=== PATIENT | female | born 1955 | race Caucasian/White ===

== ENCOUNTER 2016-04-01 13:08 | Inpatient (IN) | payer OTHER ==
[~2016-04-01] VITALS: Ht 170.2 cm; Wt 61.5 kg
[~2016-04-01 13:08] MED LIST: CARB100T2 PO; HYDR-3498 PO; IBUP-1542 PO
[2016-04-01 14:30] VITALS: BP 100/62; PULSE 87; RESP 18
[2016-04-01 14:45] VITALS: Ht 170.2 cm; Wt 61.5 kg
[2016-04-01] MEDS ORDERED: DOCUSATE SODIUM 100 MG CAP PO PRN (15:30)
[2016-04-01] MEDS ORDERED: NACL 0.9% 3 ML SYG IV SCH (15:30)
[2016-04-01] MEDS ORDERED: BISACODYL 10 MG SUPP PR PRN (15:30)
[2016-04-01] MEDS ORDERED: ACETAMINOPHEN 650 MG SUPP PR PRN (15:30)
[2016-04-01] MEDS: CIPROFLOXACIN 400MG/D5W 200 ML IVPB SCH (16:16)
[2016-04-01] MEDS: D5W-0.45 NACL + KCL 20 MEQ 1,000 ML IV SCH (16:16)
[2016-04-01] MEDS ORDERED: LORAZEPAM 1 MG TAB PO PRN (16:17)
[2016-04-01] MEDS: ONDANSETRON 4 MG INJ IV PRN ×2 (16:26→23:41)
[2016-04-01] MEDS: morphine 2 MG INJ IV PRN ×2 (16:27→21:20)
[2016-04-01] MEDS ORDERED: MAGNESIUM SULFATE 3 GM in SOD CHLORIDE 0.9% 100 ML IVPB ONE (17:00)
--- NOTE | 2016-04-01 18:01 | HP ---
DATE OF ADMISSION: 04/01/2016 CONSULTANTS: Gastroenterology. HISTORY OF PRESENT ILLNESS: This is a very pleasant 60-year-old female with past medical history of seizure disorder who has been complaining of having abdominal discomfort and nausea and vomiting an d having difficulty with p.o. intake secondary to nausea and abdominal pain. She also has been comp laining of chronic back pain and also has a history of prior hysterectomy. She reported nausea, vom iting for the past 2 weeks emesis is nonbloody, accompanied with generalized abdominal pain, no diar tana, normal bowel movements without any fever, chills, weight gain, weight loss. Positive for anor exia secondary to the nausea and vomiting. The patient became very anxious and had been having bila teral lower extremity numbness and discomfort and got anxious and presented to [facility] where she had a normal white count of 8.3. Sodium 131, potassium 2.8, chloride 80, bicarbon ate 16, GFR greater than 60, glucose 104, calcium 8.4, alkaline phosphatase 191, lipase of 164 and m agnesium 1.3. The patient was treated with 10 mEq of potassium chloride IV and [address] of the abdomen and pelvis was obtained which was unremarkable, although the small bowel was hyperemic, mildly distended and fluid-filled consistent with enteritis, hepatomegaly with fatty infiltration of the liver. Chest x-ray showed no acute disease. The patient was transferred to [facility] secondary to insurance purposes, which at this time the patient continues to complain of abdominal discomfort. This patient denies having any other discomfort at this time. PAST MEDICAL AND SURGICAL HISTORY: 1. Possible neuropathy. 2. Seizure disorder. 3. Chronic back pain. 4. Hysterectomy. MEDICATIONS: 1. Tegretol. 2. [place]. 3. Ibuprofen. ALLERGIES: NO KNOWN DRUG ALLERGIES. FAMILY HISTORY: Noncontributory. SOCIAL HISTORY: Negative x3 for smoking, alcohol, illicit drugs. REVIEW OF SYSTEMS: As above per HPI, otherwise 12 review of systems was found to be negative. PHYSICAL EXAMINATION: VITAL SIGNS: Temperature 98.7, pulse 114, respiration 18, blood pressure 130/88, oxygen 98% in room air. GENERAL APPEARANCE: Patient is well developed, appropriate for usual state of health, no apparent d istress. ENT: Extraocular is normal. Hearing is normal. Lips are normal. Oral mucosa mildly dry. NECK: Supple. Trachea is midline. No lymphadenopathy. No meningeal mass. LUNGS: Clear to auscultation bilaterally, no rales, no wheezing, no rhonchi. CARDIOVASCULAR: Normal S1, S2. Regular rhythm and rate. No murmur, no bruits, no edema. GASTROINTESTINAL: Abdomen is soft, minimally tender in the generalized abdominal region on deep pal pation. No guarding, no rebound. EXTREMITIES: There is no peripheral cyanosis or edema. No focal erythema. NEUROLOGIC: Cranial II through XII are grossly intact. PSYCHIATRIC: Normal judgment and insight. Alert and oriented x3. Mood and affect is normal. The patient is not anxious or depressed. MUSCULOSKELETAL: The patient moves all 4 extremities, 5/5 strength. SKIN: She has no apparent rash. LYMPHATIC: No evidence of excessive bruising or lymphedema. LABORATORY WORK AND IMAGING: WBC 8.3, hemoglobin 9.3, hematocrit 26.4, platelet 270, MCV is 106.5. Sodium 131, potassium 2.8, chloride 80, bicarbonate 16, BUN 9, creatinine 0.6, magnesium 1.3. Lipa se 164. ASSESSMENT AND PLAN 1. Intractable nausea and vomiting. 2. Hyperkalemia. 3. Hypermagnesemia. 4. Mild pancreatitis. 5. History of seizure disorder. 6. Hepatomegaly or fatty infiltration of the liver. 7. Microcytic anemia. 8. Antritis. PLAN: The patient has been admitted to Med/Surg. She will be started on IV fluids. Gastroenterolo gy has been consulted. We will place the patient on ciprofloxacin at this time. We will follow up CBC, BNP, magnesium in the a.m. and treat accordingly. Patient's potassium has been repleted at [facility]. At this time, I will also place the patient on magnesium 3 gram IV x1 dose. We w ill follow up vitamin B12 and folic acid and treat accordingly. For deep venous thrombosis prophyla xis on SCD. For gastrointestinal prophylaxis on proton pump inhibitor. We will continue to monitor patient closely. Further recommendations, management and treatment as p er clinical course. Total amount of time was spent for this patient on admission workup 40 minutes. Dictated By: AMA FLORES/NTS Conf#: [id number] DID#: [id number]
[2016-04-01 21:03] VITALS: BP 113/60; RESP 18
[2016-04-01] MEDS: carBAMAZepine CHEW 100 MG CHEW PO SCH (21:20)
[2016-04-02] VITALS (13 sets, daily range): BP systolic 88–118; BP diastolic 51–80; PULSE 84–90; RESP 11–24
[2016-04-02] MEDS: CIPROFLOXACIN 400MG/D5W 200 ML IVPB SCH ×2 (03:28→16:00)
[2016-04-02] MEDS: D5W-0.45 NACL + KCL 20 MEQ 1,000 ML IV SCH ×2 (03:28→16:06)
[2016-04-02 05:28] LABS: BASOPHILS % 0.9 % (0.0-2.0); EOSINOPHILS % 0.4 % (0.0-7.0); HEMATOCRIT 20.4 % (37.0-47.0); LYMPHOCYTES # 0.8 10^3/ul (0.8-2.9); LYMPHOCYTES % 21.2 % (15.0-51.0); MEAN CORPUSCULAR HEMOGLOBIN 38.4 pg (29.0-33.0); MEAN CORPUSCULAR HGB CONC 34.5 g/dl (32.0-37.0); MEAN CORPUSCULAR VOLUME 111.3 fl (82.0-101.0); MEAN PLATELET VOLUME 7.3 fl (7.4-10.4); MONOCYTE # 0.4 10^3/ul (0.3-0.9); MONOCYTES % 9.5 % (0.0-11.0); NEUTROPHIL # 2.6 10^3/ul (1.6-7.5); PLATELET COUNT 171 10^3/UL (140-440); RED BLOOD COUNT 1.83 10^6/ul (4.20-5.40); UNCORRECTED WBC 3.9 10^3/ul (4.8-10.8); WHITE BLOOD COUNT 3.9 10^3/ul (4.8-10.8)
[2016-04-02 05:34] LABS: IRON 120 ug/dl (35-150)
[2016-04-02 05:35] LABS: ALBUMIN 2.5 g/dl (3.3-4.9)
[2016-04-02 05:38] LABS: BILIRUBIN,INDIRECT 0.7 mg/dl (0-1.1); BILIRUBIN,TOTAL 0.7 mg/dl (0.2-1.3); CREATININE 0.5 mg/dl (0.44-1.00); TOTAL PROTEIN 4.8 g/dl (6.1-8.1)
[2016-04-02 05:39] LABS: CALCIUM 7.3 mg/dl (8.4-10.2); MAGNESIUM 1.9 mg/dl (1.7-2.5); POTASSIUM 2.4 mmol/L (3.5-5.1)
[2016-04-02 05:40] LABS: CHOL/HDL RATIO 3.3 RATIO
[2016-04-02 05:44] LABS: TOTAL IRON BINDING CAPACITY 141 ug/dl (241-421)
[2016-04-02 05:59] LABS: ALBUMIN/GLOBULIN RATIO 1.08
[2016-04-02] MEDS ORDERED: POTASSIUM CHLORIDE 250 ML IVPB ONE (06:00)
[2016-04-02] MEDS ORDERED: PANTOPRAZOLE 40 MG INJ IV SCH (06:00)
[2016-04-02] MEDS: ONDANSETRON 4 MG INJ IV PRN ×2 (06:10→13:58)
[2016-04-02] MEDS: POTASSIUM CHLORIDE (SR) 20 MEQ TAB PO SCH ×2 (06:10→12:51)
[2016-04-02] MEDS: morphine 2 MG INJ IV PRN ×3 (06:21→18:30)
[2016-04-02 06:28] LABS: CONDITION 1; LH ANALYZER COMMENTS 1
[2016-04-02 06:42] LABS: FOLATE 2.9 ng/ml (2.8-20.0)
[2016-04-02 07:45] LABS: THYROID STIMULATING HORMONE 2.77 MIU/L (0.465-4.680)
[2016-04-02] MEDS ORDERED: SOD CHLORIDE 0.9% 250 ML IV* ONE (08:06)
--- NOTE | 2016-04-02 08:59 | CONS ---
Date/Time of Note Date/Time of Note DATE: 04/02/16 TIME: 08:57 Assessment/Plan Assessment/Plan Additional Assessment/Plan Abdominal pain Nausea Vomiting * Evaluate for PUD * EGD this afternoon with Dr. Stanford * N.p.o. Anemia * Evaluate for PUD versus hemochromatosis * Monitor hemoglobin every 6 hours, transfuse 2 units for hemoglobin less than 7.5 * May need HemeOnc consult Transaminitis * Acute hepatitis panel * Monitor LFTs Hypokalemia. History of seizure disorder. Further recommendations pending clinical course Patient seen in collaboration with Dr. Stanford Consultation Date/Type/Reason Admit Date/Time Apr 01, 2016 at 14:01 Type of Consultation: Gastroenterology Reason for Consultation Abdominal pain Hx of Present Illness 60-year-old female with reports of intense abdominal pain, nausea, nonbloody bilious vomiting, and weight loss for the last 2 weeks. Patient states that symptoms have been present intermittently but of late have been intense and unrelenting for the last few days. Patient reports abdominal pain and left upper quadrant and epigastrium and states the pain lasts for hours to days. Patient states that abdominal pain, nausea, vomiting has led her to lose close to 20 pounds in over 2 weeks. Patient denies diarrhea, sick contacts, fever, chills travel outside the [place], new medication, antibiotic use, alcohol abuse, melena stools, and previous episode. Patient also denies previous endoscopic evaluation. She also has been complaining of chronic back pain and also has a history of prior hysterectomy. Presently patient's hemoglobin is at 7.0 with elevated ferritin. Past Surgical History Past Surgical Hx: other (History of) Social History Alcohol Use: rarely Smoking Status: Current every day smoker Exam/Review of Systems Vital Signs Vitals Vital Signs Date Time Temp Pulse Resp B/P Pulse Ox O2 Delivery O2 Flow Rate FiO2 04/02/16 08:01 98.2 92 18 88/51 93 04/01/16 14:30 Room Air Intake and Output 04/01/16 04/01/16 04/02/16 15:00 23:00 07:00 Intake Total 456 ml 1260 ml Output Total 1 ml 400 ml Balance 455 ml 860 ml Exam Constitutional: alert, oriented, well developed Psych: nl mood/affect Head: normocephalic Eyes: EOMI ENMT: nl external ears & nose, nl lips & teeth, nl nasal mucosa & septum Respiratory: normal air movement Gastrointestinal: other (Left upper quadrant and epigastric), soft Neurological: FABRICATION MANAGER II-XII intact Results Result Diagram: 04/02/16 0440 04/02/16 0440 Results 24 hrs Laboratory Tests Test 04/02/16 04:40 Alanine Aminotransferase (ALT/SGPT) 52 Albumin 2.5 L Albumin/Globulin Ratio 1.08 Alkaline Phosphatase 141 H Anion Gap 15 Aspartate Amino Transf (AST/SGOT) 118 H Basophils # Pending Basophils % Pending Blood Morphology Comment Blood Urea Nitrogen 7 Calcium Level 7.3 L Carbon Dioxide Level 26 Chloride Level 92 L Cholesterol Level 142 Cholesterol/HDL Ratio 3.3 Creatinine 0.50 Direct Bilirubin 0.00 Eosinophils # Pending Eosinophils % Pending Ferritin 1040.0 H Folate 2.9 Globulin 2.30 Glucose Level 136 HDL Cholesterol 42 Hematocrit 20.4 L Hemoglobin 7.0 L Indirect Bilirubin 0.7 Iron Level 120 LDL Cholesterol, Calculated 86 Lymphocytes # Pending Lymphocytes % Pending Magnesium Level 1.9 Mean Corpuscular Hemoglobin 38.4 H Mean Corpuscular Hemoglobin Concent 34.5 Mean Corpuscular Volume 111.3 H Mean Platelet Volume 7.3 L Monocytes # Pending Monocytes % Pending Neutrophils # Pending Neutrophils % Pending Nucleated Red Blood Cells # Pending Nucleated Red Blood Cells % Pending Percent Iron Saturation 85 H Platelet Count 171 Potassium Level 2.4 *L Red Blood Count 1.83 L Red Cell Distribution Width 17.0 H Sodium Level 131 L Thyroid Stimulating Hormone (TSH) 2.770 Total Bilirubin 0.7 Total Iron Binding Capacity 141 L Total Protein 4.8 L Triglycerides Level 71 Vitamin B12 Level 774 White Blood Count 3.9 L Medications Medications Current Medications Carbamazepine 200 mg 200 mg BID PO Last administered on 04/01/16 21:20; Admin Dose 200 MG; Start 04/01/16 at 21:00 Potassium Chloride/Dextrose/ Sod Cl (D5-1/2ns + KCl 20 Meq) 1,000 ml @ 80 mls/ hr [id number] IV Last administered on 04/02/16 03:28; Admin Dose 80 MLS/HR; Start 04/01/16 at 15:06 Ondansetron HCl (Zofran Inj) 4 mg Q6H PRN IV NAUSEA AND/OR VOMITING Last administered on 04/02/16 06:10; Admin Dose 4 MG; Start 04/01/16 at 15:30 Acetaminophen (Tylenol Tab) 650 mg Q6H PRN PO PAIN LEVEL 1-3 OR FEVER; Start at 15:30 Acetaminophen (Tylenol Supp) 650 mg Q6H PRN [place] PAIN LEVEL 1-3 OR FEVER; Start 04/01/16 at 15:30 Morphine Sulfate (morphine) 1 mg Q4H PRN IV SEVERE PAIN LEVEL 7-10 Last administered on 04/02/16 06:21; Admin Dose 1 MG; Start 04/01/16 at 15:30 Docusate Sodium (Colace) 100 mg Q12H PRN PO CONSTIPATION; Start 04/01/16 at 15: 30 Bisacodyl (Dulcolax Supp) 10 mg DAILY PRN [place] CONSTIPATION; Start 04/01/16 at 15: 30 Zolpidem Tartrate (Ambien) 5 mg QHS PRN PO SLEEP; Start 04/01/16 at 15:30 Pantoprazole 40 mg 40 mg DAILY@06 IV Last administered on 04/02/16 06:10; Admin Dose 40 MG; Start 04/02/16 at 06:00 Ciprofloxacin/ Dextrose (Cipro Ivpb) 200 ml @ 200 mls/hr Q12H IVPB Last administered on 04/02/16 03:28; Admin Dose 200 MLS/HR; Start 04/01/16 at 16:00 Lorazepam (Ativan) 1 mg Q8H PRN PO ANXIETY; Start 04/01/16 at 16:17 Potassium Chloride 40 meq 40 meq Q4H PO Last administered on 04/02/16 06:10; Admin Dose 40 MEQ; Start 04/02/16 at 06:00; Stop 04/02/16 at 11:00 Potassium Chloride (KCl 40 MEQ/250 ML NS) 250 ml @ 62.5 mls/hr ONCE ONCE IVPB Last administered on 04/02/16 06:11; Admin Dose 62.5 MLS/HR; Start 04/02/16 at 06:00; Stop 04/02/16 at 09:59 JOEY MANN Apr 02, 2016 08:59
[2016-04-02] MEDS: carBAMAZepine CHEW 100 MG CHEW PO SCH ×2 (09:00→21:13)
[2016-04-02 09:24] LABS: AMYLASE 85 U/L (11-123)
[2016-04-02 11:25] LABS: HAAIG REFLEX REFLEX FILED
[2016-04-02 11:45] LABS: INR 1.15; PROTIME 14.7 Sec (12.2-14.2); PT RATIO 1.1
--- NOTE | 2016-04-02 12:22 | RADRPT ---
PROCEDURE: US Abdomen and Retroperitoneum. CLINICAL INDICATION: Abdominal pain. TECHNIQUE: Multiple real-time longitudinal and transverse images were acquired of the patient's ab domen and retroperitoneum utilizing a curved array transducer. COMPARISON: No prior studies are available for comparison. FINDINGS: The liver is enlarged and diffusely increased in echogenicity. The liver has a normal smooth surfac e. There is no focal hepatic lesion. Color Doppler and pulsed Doppler sonography demonstrate normal antegrade flow in the portal vein. There is sludge in the gallbladder. There are no gallstones in the gallbladder. There is gallbladd er wall thickening measuring 5.4 mm. There is small amount of fluid adjacent to the gallbladder. The bile ducts are normal with the common bile duct measuring 5.4 mm in diameter. The spleen is normal in size. There is no focal splenic lesion. The pancreas is partially seen and is unremarkable. There is no free fluid. The right kidney measures 12.7 x 4.8 cm and the left kidney measures 12.9 x 6.8 cm. There is no renal mass. There is no hydronephrosis or calculus. The abdominal aorta is not dilated. The inferior vena cava is unremarkable. IMPRESSION: 1. Fatty metamorphosis of the liver. 2. Hepatomegaly. 3. Sludge in the gallbladder. No gallstones. Gallbladder wall thickening and small amount of saima cent fluid which may indicate acute cholecystitis. 4. Normal bile ducts. 5. Otherwise normal ultrasound of the abdomen and retroperitoneum. RPTAT: QQ .Yakov Espinal MD, MD Date Time Electronically viewed and signed by .Yakov Espinal MD, on 04/02/2016 12:22 .R/
[2016-04-02 12:44] LABS: HEPATITIS B CORE ANTIBODY NEGATIVE (NEGATIVE)
[2016-04-02 14:56] LABS: POTASSIUM 3.5 mmol/L (3.5-5.1)
[2016-04-02 14:59] LABS: CALCIUM 7.4 mg/dl (8.4-10.2); CREATININE 0.47 mg/dl (0.44-1.00)
--- NOTE | 2016-04-02 16:08 | PN ---
DATE: 04/02/2016 TIME OF EVALUATION: 1300 SUBJECTIVE DATA: Complains of abdominal pain. OBJECTIVE DATA: VITAL SIGNS: Temperature 98.2, pulse rate 92, respiratory rate 18, blood pressure 88/51, oxygen saturation 93% on room air. GENERAL: This is a fragile looking female patient lying in bed in no apparent distress. HEENT: Head normocephalic and atraumatic. Eyes: Anicteric sclerae. Conjunctivae clear. ENT: Nasal septum is midline. Oral mucosa is dry. NECK: Supple. No JVD noticed. RESPIRATORY: Bilaterally clear to auscultation. No adventitious breath sounds heard. No use of accessory muscles of respiration. CARDIAC: Regular rate and rhythm. No murmurs heard. ABDOMEN: Soft. Diffuse tenderness. Bowel sounds hypoactive in all 4 quadrants. GENITOURINARY: Deferred. EXTREMITIES: No cyanosis, no clubbing, no edema. Peripheral pulses are palpable. NEUROLOGIC: The patient is awake, alert and oriented. Cranial nerves are grossly intact. LABORATORY AND DIAGNOSTIC DATA: WBC 3.9, hemoglobin 7.0, hematocrit 20.4, platelet count 171. Sodium 133, potassium 3.5, chloride 97, anion gap 15, BUN 6 , creatinine 0.47, glucose 106, calcium 7.4. ASSESSMENT AND PLAN: 1. Abdominal pain with associated nausea and vomiting. The patient has been followed by gastroenterology. Abdominal ultrasound showing fatty metamorphosis of the liver and hepatomegaly with sludge in the gallbladder; however, no gallstones identified. The patient will be continued on proton pump inhibitors. The patient is scheduled for esophagogastroduodenoscopy to evaluate for any underlying peptic ulcer disease. 2. Seizure disorder. Continue anti-seizure medications. 3. Macrocytic anemia. Transfuse as needed. Stool for OB pending. Gastroenterology following. 4. Transaminitis. Etiology unclear. Gallbladder ultrasound showing gallbladder sludge. Avoid hepatotoxic medications. Hepatitis panel negative. 5. Hyponatremia. Improving. Monitor. 6. Fluid, electrolytes and nutrition. N.p.o. except for medications. 7. DVT prophylaxis with bilateral sequential compression devices. 8. Gastrointestinal prophylaxis with PPIs. PLAN: Continue proton pump inhibitors, await esophagogastroduodenoscopy. Transfuse PRBCs. Case discussed with Dr. Reddy. KRYSTAL REDDY MD, AM/CALLI Conf#: [id number] [facility]#: [id number] MTDD
[2016-04-02] MEDS ORDERED: PROPOFOL 40 ML ONE (16:50)
[2016-04-02] MEDS ORDERED: LIDOCAINE 2% (SDV) 5 ML INJ ONE (16:50)
[2016-04-02] MEDS: METOCLOPRAMIDE 10 MG INJ IV SCH (18:30)
[2016-04-02] MEDS: PANTOPRAZOLE 40 MG INJ IV SCH (21:13)
[2016-04-03] MEDS: morphine 2 MG INJ IV PRN ×5 (00:03→21:12)
[2016-04-03] MEDS: CIPROFLOXACIN 400MG/D5W 200 ML IVPB SCH ×2 (03:48→15:31)
[2016-04-03] MEDS: D5W-0.45 NACL + KCL 20 MEQ 1,000 ML IV SCH ×2 (03:50→17:02)
[2016-04-03] MEDS: METOCLOPRAMIDE 10 MG INJ IV SCH ×4 (05:13→17:21)
[2016-04-03 05:50] LABS: ALBUMIN 2.5 g/dl (3.3-4.9); POTASSIUM 3.4 mmol/L (3.5-5.1)
[2016-04-03 05:53] LABS: ALBUMIN/GLOBULIN RATIO 1.04; BILIRUBIN,INDIRECT 0.7 mg/dl (0-1.1); BILIRUBIN,TOTAL 0.7 mg/dl (0.2-1.3); CALCIUM 7.5 mg/dl (8.4-10.2); CREATININE 0.43 mg/dl (0.44-1.00); TOTAL PROTEIN 4.9 g/dl (6.1-8.1)
[2016-04-03 05:57] LABS: AMYLASE 68 U/L (11-123)
[2016-04-03 06:35] LABS: MAGNESIUM 1.3 mg/dl (1.7-2.5); PHOSPHORUS 1.4 mg/dl (2.5-4.9)
[2016-04-03 06:53] LABS: BASOPHILS % 0.8 % (0.0-2.0); EOSINOPHILS % 0.5 % (0.0-7.0); HEMATOCRIT 25.1 % (37.0-47.0); HEMOGLOBIN 8.8 g/dl (12.0-16.0); LYMPHOCYTES % 24.4 % (15.0-51.0); MEAN CORPUSCULAR HEMOGLOBIN 35.1 pg (29.0-33.0); MEAN CORPUSCULAR HGB CONC 35.1 g/dl (32.0-37.0); MEAN PLATELET VOLUME 9.7 fl (7.4-10.4); MONOCYTES % 11.2 % (0.0-11.0); NEUTROPHIL # 2.3 10^3/ul (1.6-7.5); NEUTROPHILS % 62.6 % (39.0-77.0); PLATELET COUNT 149 10^3/UL (140-440); RED BLOOD COUNT 2.51 10^6/ul (4.20-5.40); RED CELL DISTRIBUTION WIDTH 20.1 % (11.5-14.5); WHITE BLOOD COUNT 3.7 10^3/ul (4.8-10.8)
[2016-04-03 06:54] LABS: LYMPHOCYTES # 0.9 10^3/ul (0.8-2.9); MONOCYTE # 0.4 10^3/ul (0.3-0.9)
[2016-04-03 08:11] VITALS: BP 112/68; RESP 18
[2016-04-03] MEDS: carBAMAZepine CHEW 100 MG CHEW PO SCH ×2 (08:30→21:11)
[2016-04-03] MEDS: PANTOPRAZOLE 40 MG INJ IV SCH ×2 (08:30→21:11)
--- NOTE | 2016-04-03 08:36 | CONS ---
Date/Time of Note Date/Time of Note DATE: 04/03/16 TIME: 08:35 Assessment/Plan Assessment/Plan Chief Complaint/Hosp Course 60-year-old female with reports of intense abdominal pain, nausea, nonbloody bilious vomiting, and weight loss for the last 2 weeks. Patient states that symptoms have been present intermittently but of late have been intense and unrelenting for the last few days. Patient reports abdominal pain and left upper quadrant and epigastrium and states the pain lasts for hours to days. Patient states that abdominal pain, nausea, vomiting has led her to lose close to 20 pounds in over 2 weeks. Patient denies diarrhea, sick contacts, fever, chills travel outside the [place], new medication, antibiotic use, alcohol abuse, melena stools, and previous episode. Patient also denies previous endoscopic evaluation. She also has been complaining of chronic back pain and also has a history of prior hysterectomy. Presently patient's hemoglobin is at 7.0 with elevated ferritin. Problems: Additional Assessment/Plan Abdominal pain Nausea Vomiting * EGD 04-02-16: 1. Small 5 mm clean based antral gastric ulceration. Biopsies were obtained. * Continue PPIs and Reglan * Recommend colonoscopy once pancreatitis and persistent nausea clear either as an inpatient or as an outpatient shortly after discharge. this afternoon with Dr. Stanford * Advance diet as tolerated Anemia * Evaluate for PUD versus hemochromatosis * Monitor hemoglobin every 6 hours, transfuse 2 units for hemoglobin less than 7.5 * May need HemeOnc consult Transaminitis * Acute hepatitis panel, negative * Monitor LFTs Hypokalemia. History of seizure disorder. Further recommendations pending clinical course Patient seen in collaboration with Dr. Stanford Consultation Date/Type/Reason Admit Date/Time Apr 01, 2016 at 14:01 Initial Consult Date Type of Consultation: Gastroenterology 24 HR Interval Summary Free Text/Dictation Advised patient of EGD results We will advance diet Recommend outpatient colonoscopy since she does not want it as inpatient Exam/Review of Systems Vital Signs Vitals Vital Signs Date Time Temp Pulse Resp B/P Pulse Ox O2 Delivery O2 Flow Rate FiO2 04/03/16 08:11 98.3 92 18 112/68 95 04/02/16 18:48 Room Air Intake and Output 04/02/16 04/02/16 04/03/16 14:59 22:59 06:59 Intake Total 330 ml 350 ml 1700 ml Output Total 830 ml Balance 330 ml 350 ml 870 ml Exam Constitutional: alert, oriented, well developed Psych: nl mood/affect Head: normocephalic Eyes: EOMI ENMT: nl external ears & nose, nl lips & teeth, nl nasal mucosa & septum Respiratory: normal air movement Gastrointestinal: other (Left upper quadrant and epigastric), soft Neurological: SUGAR BOILER II-XII intact Results Result Diagram: 04/03/1644404/03/165 Results 24 hrs Laboratory Tests Test 04/02/16 11:00 04/02/16 11:25 04/02/16 14:10 04/03/16 04:45 Hepatitis B Core Total Antibody NEGATIVE Hepatitis B Surface Antigen NEGATIVE Hepatitis C Antibody NEGATIVE INR International Normalized Ratio 1.15 Prothrombin Time 14.7 H Prothrombin Time Ratio 1.1 Hepatitis A IgM Antibody NON-REACTIVE Anion Gap 15 12 Blood Urea Nitrogen 6 L 4 L Calcium Level 7.4 L 7.5 L Carbon Dioxide Level 25 24 Chloride Level 97 100 Creatinine 0.47 0.43 L Glucose Level 106 134 Potassium Level 3.5 3.4 L Sodium Level 133 L 133 L Alanine Aminotransferase (ALT/SGPT) 44 Albumin 2.5 L Albumin/Globulin Ratio 1.04 Alkaline Phosphatase 140 H Amylase Level 68 Aspartate Amino Transf (AST/SGOT) 109 H Basophils # 0.0 Basophils % 0.8 Direct Bilirubin 0.00 Eosinophils # 0.0 Eosinophils % 0.5 Globulin 2.40 Hematocrit 25.1 #L Hemoglobin 8.8 #L Indirect Bilirubin 0.7 Lipase 517 H Lymphocytes # 0.9 Lymphocytes % 24.4 Magnesium Level 1.3 L Mean Corpuscular Hemoglobin 35.1 H Mean Corpuscular Hemoglobin Concent 35.1 Mean Corpuscular Volume 100.0 Mean Platelet Volume 9.7 # Monocytes # 0.4 Monocytes % 11.2 H Neutrophils # 2.3 Neutrophils % 62.6 Nucleated Red Blood Cells # 0.0 Nucleated Red Blood Cells % 0.0 Phosphorus Level 1.4 L Platelet Count 149 Red Blood Count 2.51 #L Red Cell Distribution Width 20.1 H Total Bilirubin 0.7 Total Protein 4.9 L White Blood Count 3.7 L Medications Medications Current Medications Carbamazepine 200 mg 200 mg BID PO Last administered on 04/03/16t 08:30; Admin Dose 200 MG; Start 04/01/16 at 21:00 Potassium Chloride/Dextrose/ Sod Cl (D5-1/2ns + KCl 20 Meq) 1,000 ml @ 80 mls/ hr [id number] IV Last administered on 04/03/16 03:50; Admin Dose 80 MLS/HR; Start 04/01/16 at 15:06 Ondansetron HCl (Zofran Inj) 4 mg Q6H PRN IV NAUSEA AND/OR VOMITING Last administered on 04/02/16 13:58; Admin Dose 4 MG; Start 04/01/16 at 15:30 Acetaminophen (Tylenol Tab) 650 mg Q6H PRN PO PAIN LEVEL 1-3 OR FEVER; Start at 15:30 Acetaminophen (Tylenol Supp) 650 mg Q6H PRN [place] PAIN LEVEL 1-3 OR FEVER; Start 04/01/16 at 15:30 Morphine Sulfate (morphine) 1 mg Q4H PRN IV SEVERE PAIN LEVEL 7-10 Last administered on 04/03/16 05:14; Admin Dose 1 MG; Start 04/01/16 at 15:30 Docusate Sodium (Colace) 100 mg Q12H PRN PO CONSTIPATION; Start 04/01/16 at 15: 30 Bisacodyl (Dulcolax Supp) 10 mg DAILY PRN [place] CONSTIPATION; Start 04/01/16 at 15: 30 Zolpidem Tartrate 5 mg 5 mg QHS PRN PO SLEEP; Start 04/01/16 at 15:30 Ciprofloxacin/ Dextrose (Cipro Ivpb) 200 ml @ 200 mls/hr Q12H IVPB Last administered on 04/03/16 03:48; Admin Dose 200 MLS/HR; Start 04/01/16 at 16:00 Lorazepam (Ativan) 1 mg Q8H PRN PO ANXIETY; Start 04/01/16 at 16:17 Pantoprazole (Protonix Iv) 40 mg BID IV Last administered on 04/03/16 08:30; Admin Dose 40 MG; Start 04/02/16 at 21:00 Metoclopramide HCl (Reglan) 10 mg Q6 IV Last administered on 04/03/16 05:13; Admin Dose 10 MG; Start 04/02/16 at 18:00 JOEY MANN Apr 03, 2016 08:36
[2016-04-03] MEDS: ONDANSETRON 4 MG INJ IV PRN (08:37)
--- NOTE | 2016-04-03 09:42 | GILP ---
DATE OF PROCEDURE: 04/02/2016 DATE: NAME OF PROCEDURE: Esophagogastroduodenoscopy with biopsy. SURGEON: Eugenio Stanford MD. PREOPERATIVE DIAGNOSIS: ____ POSTOPERATIVE DIAGNOSIS: ____ DESCRIPTION OF PROCEDURE: ____ HISTORY AND INDICATIONS: The patient with severe anemia. PREMEDICATION: Monitored anesthesia care by anesthesiologist. INSTRUMENT USED: Olympus upper endoscope. TECHNIQUE: After informed consent, with the patient/relatives understanding the procedure, its indic ations, potential risks and complications, including but not limited to: allergic reaction, bleeding , perforation or infection, and after all pertinent questions were answered to the patients satisfac tion, the patient/relatives signed witnessed informed consent. Following this, premedication was administered slowly IV push under careful cardiovascular and respi ratory monitoring with pulse oximetry, automatic blood pressure and senior hr business partner. Once the sedative effect was achieved the patient was place in the left lateral decubitus, the panen doscope was introduced and advanced under visual control. Careful examination of the upper gastrointestinal tract, both on insertion as well as withdrawal of the instrument disclosed the following findings: ESOPHAGUS: The mucosa of the entire esophagus appears within normal limits. There is no evidence of esophagitis, varices, neoplasm or stricture. No hiatal hernia identified. STOMACH: Upon entrance into the stomach, air was insufflated, the gastric melton distended normally. There was a 5 mm clean based benign appearing gastric ulceration in the antrum. Biopsies were obt ained to rule out H. pylori infection. PYLORUS: The pylorus appears patent and within normal limits, with no evidence of gastric outlet obs truction. DUODENUM: The duodenal mucosa was carefully examined in the duodenal bulb as well as the second port ion of the duodenum and appears unremarkable with no evidence of duodenitis, ulcer or neoplasm. The instrument was then withdrawn, the patient tolerated the procedure well and was transfer out of the endoscopy suite awake, and in good condition to continue recovery under observation IMPRESSION: Small 5 mm clean based antral gastric ulceration. Biopsies were obtained. PLAN: The patient will be treated with PPIs. Reglan will be added to her regimen. The patient mike uld be considered for colonoscopy once pancreatitis and persistent nausea clear either as an inpatie nt or as an outpatient shortly after discharge. Dictated By: EUGENIO STANFORD MS/CALLI Conf#: [id number] [facility]#: [id number]
--- NOTE | 2016-04-03 11:34 | PN ---
Date/Time of Note Date/Time of Note DATE: 04/03/16 TIME: 11:23 Assessment/Plan VTE Prophylaxis VTE Prophylaxis Intervention: SCD's Lines/Catheters IV Catheter Type (from Nrs): Peripheral IV Urinary Cath still in place: No Assessment/Plan Assessment/Plan PROBLEMS: Abdominal pain with associated nausea and vomiting 2/2 Alcoholic Pancreatitis Seizure disorder. Continue anti-seizure medications. Small Gastric ulcer * Seen on EGD 04/02/16 Moderate Macrocytic anemia s/p transfusion 04/02/16 Transaminitis likely 2/2 Fatty liver. Hypernatremia. Improving. ?Alcohol abuse Hypokalemia Hypophosphatemia Hypomagnesemia Hypocalcemia PLAN: Appreciate GI input / Continue proton pump inhibitors / f/u biopsies / Will need outpt Colonoscopy Continue NPO / IVF / Amylase & Lipase trending Replace electrolytes Continue seizure precautions / pain control/ antiemetics/ supportive care Subjective 24 Hr Interval Summary Gastrointestinal: decreased appetite, pain Exam/Review of Systems Vital Signs Vitals Vital Signs Date Time Temp Pulse Resp B/P Pulse Ox O2 Delivery O2 Flow Rate FiO2 04/03/16 08:11 98.3 92 18 112/68 95 04/02/16 18:48 Room Air Intake and Output 04/02/16 04/02/16 04/03/16 15:00 23:00 07:00 Intake Total 330 ml 350 ml 1700 ml Output Total 830 ml Balance 330 ml 350 ml 870 ml Exam GENERAL: This is a fragile looking female patient lying in bed in no apparent distress. HEENT: Head normocephalic and atraumatic. Eyes: Anicteric sclerae. Conjunctivae clear. ENT: Nasal septum is midline. Oral mucosa is dry. NECK: Supple. No JVD noticed. RESPIRATORY: Bilaterally clear to auscultation. No adventitious breath sounds heard. No use of accessory muscles of respiration. CARDIAC: Regular rate and rhythm. No murmurs heard. ABDOMEN: Soft. Diffuse tenderness. Bowel sounds hypoactive in all 4 quadrants. GENITOURINARY: Deferred. EXTREMITIES: No cyanosis, no clubbing, no edema. Peripheral pulses are palpable. NEUROLOGIC: The patient is awake, alert and oriented. Cranial nerves are grossly intact. Results Result Diagram: 04/03/16 0445 04/03/16 0445 Results 24 hrs Laboratory Tests Test 04/02/16 11:25 04/02/16 14:10 04/03/16 04:45 Hepatitis A IgM Antibody NON-REACTIVE Anion Gap 15 12 Blood Urea Nitrogen 6 L 4 L Calcium Level 7.4 L 7.5 L Carbon Dioxide Level 25 24 Chloride Level 97 100 Creatinine 0.47 0.43 L Glucose Level 106 134 Potassium Level 3.5 3.4 L Sodium Level 133 L 133 L Alanine Aminotransferase (ALT/SGPT) 44 Albumin 2.5 L Albumin/Globulin Ratio 1.04 Alkaline Phosphatase 140 H Amylase Level 68 Aspartate Amino Transf (AST/SGOT) 109 H Basophils # 0.0 Basophils % 0.8 Direct Bilirubin 0.00 Eosinophils # 0.0 Eosinophils % 0.5 Globulin 2.40 Hematocrit 25.1 #L Hemoglobin 8.8 #L Indirect Bilirubin 0.7 Lipase 517 H Lymphocytes # 0.9 Lymphocytes % 24.4 Magnesium Level 1.3 L Mean Corpuscular Hemoglobin 35.1 H Mean Corpuscular Hemoglobin Concent 35.1 Mean Corpuscular Volume 100.0 Mean Platelet Volume 9.7 # Monocytes # 0.4 Monocytes % 11.2 H Neutrophils # 2.3 Neutrophils % 62.6 Nucleated Red Blood Cells # 0.0 Nucleated Red Blood Cells % 0.0 Phosphorus Level 1.4 L Platelet Count 149 Red Blood Count 2.51 #L Red Cell Distribution Width 20.1 H Total Bilirubin 0.7 Total Protein 4.9 L White Blood Count 3.7 L Medications Medications Current Medications Carbamazepine 200 mg 200 mg BID PO Last administered on 04/03/16 08:30; Admin Dose 200 MG; Start 04/01/16 at 21:00 Potassium Chloride/Dextrose/ Sod Cl (D5-1/2ns + KCl 20 Meq) 1,000 ml @ 80 mls/ hr [id number] IV Last administered on 04/03/16 03:50; Admin Dose 80 MLS/HR; Start 04/01/16 at 15:06 Ondansetron HCl (Zofran Inj) 4 mg Q6H PRN IV NAUSEA AND/OR VOMITING Last administered on 04/03/16 08:37; Admin Dose 4 MG; Start 04/01/16 at 15:30 Acetaminophen (Tylenol Tab) 650 mg Q6H PRN PO PAIN LEVEL 1-3 OR FEVER; Start at 15:30 Acetaminophen (Tylenol Supp) 650 mg Q6H PRN [place] PAIN LEVEL 1-3 OR FEVER; Start 04/01/16 at 15:30 Morphine Sulfate (morphine) 1 mg Q4H PRN IV SEVERE PAIN LEVEL 7-10 Last administered on 04/03/16 05:14; Admin Dose 1 MG; Start 04/01/16 at 15:30 Docusate Sodium (Colace) 100 mg Q12H PRN PO CONSTIPATION; Start 04/01/16 at 15: 30 Bisacodyl (Dulcolax Supp) 10 mg DAILY PRN [place] CONSTIPATION; Start 04/01/16 at 15: 30 Zolpidem Tartrate 5 mg 5 mg QHS PRN PO SLEEP; Start 04/01/16 at 15:30 Ciprofloxacin/ Dextrose (Cipro Ivpb) 200 ml @ 200 mls/hr Q12H IVPB Last administered on 04/03/16 03:48; Admin Dose 200 MLS/HR; Start 04/01/16 at 16:00 Lorazepam (Ativan) 1 mg Q8H PRN PO ANXIETY; Start 04/01/16 at 16:17 Pantoprazole (Protonix Iv) 40 mg BID IV Last administered on 04/03/16 08:30; Admin Dose 40 MG; Start 04/02/16 at 21:00 Metoclopramide HCl (Reglan) 10 mg Q6 IV Last administered on 04/03/16 05:13; Admin Dose 10 MG; Start 04/02/16 at 18:00 GORDON JAMES Apr 03, 2016 11:33
[2016-04-03] MEDS ORDERED: MAGNESIUM SULFATE 2 GM/50 ML 50 ML IVPB ONE (12:00)
[2016-04-03] MEDS ORDERED: POTASSIUM PHOSPHATE 20 MEQ in SOD CHLORIDE 0.9% 250 ML IVPB ONE (13:00)
[2016-04-03] MEDS: ACETAMINOPHEN 325 MG TAB PO PRN (22:54)
[2016-04-03 23:19] VITALS: BP 114/75; RESP 18
[2016-04-04] MEDS: METOCLOPRAMIDE 10 MG INJ IV SCH ×5 (00:13→23:43)
[2016-04-04] MEDS: D5W-0.45 NACL + KCL 20 MEQ 1,000 ML IV SCH ×2 (02:07→15:33)
[2016-04-04] MEDS: CIPROFLOXACIN 400MG/D5W 200 ML IVPB SCH ×2 (04:22→15:32)
[2016-04-04] MEDS: morphine 2 MG INJ IV PRN ×5 (05:30→22:09)
[2016-04-04 08:10] VITALS: BP 108/69; RESP 18
--- NOTE | 2016-04-04 08:44 | CONS ---
Date/Time of Note Date/Time of Note DATE: 04/04/16 TIME: 08:44 Assessment/Plan Assessment/Plan Additional Assessment/Plan Abdominal pain Nausea Vomiting * EGD 04-02-16: 1. Small 5 mm clean based antral gastric ulceration. Biopsies were obtained. * Continue PPIs and Reglan * Recommend colonoscopy once pancreatitis and persistent nausea clear either as an inpatient or as an outpatient shortly after discharge. Pancreatitis * Likely secondary to EtOH abuse * N.p.o. * IVF hydration * Trend labs Anemia * Evaluate for PUD versus hemochromatosis * Monitor hemoglobin every 6 hours, transfuse 2 units for hemoglobin less than 7.5 * May need HemeOnc consult Transaminitis * Acute hepatitis panel, negative * Monitor LFTs Hypokalemia. History of seizure disorder. Further recommendations pending clinical course Patient seen in collaboration with Dr. Stanford Consultation Date/Type/Reason Admit Date/Time Apr 01, 2016 at 14:01 Type of Consultation: Gastroenterology 24 HR Interval Summary Free Text/Dictation Reports abdominal pain improving Denies nausea and vomiting Exam/Review of Systems Vital Signs Vitals Vital Signs Date Time Temp Pulse Resp B/P Pulse Ox O2 Delivery O2 Flow Rate FiO2 04/04/16 08:10 98.3 94 18 108/69 96 04/02/16 18:48 Room Air Intake and Output 04/03/16 04/03/16 04/04/16 15:00 23:00 07:00 Intake Total 480 ml 724.5455 ml 870 ml Output Total 300 ml Balance 480 ml 724.5455 ml 570 ml Exam Constitutional: alert, oriented, well developed Psych: nl mood/affect Head: normocephalic Eyes: EOMI ENMT: nl external ears & nose, nl lips & teeth, nl nasal mucosa & septum Respiratory: normal air movement Gastrointestinal: other (Left upper quadrant and epigastric), soft Neurological: ACTION FINISHER II-XII intact Results Result Diagram: 04/03/1644404/03/16444 Medications Medications Current Medications Carbamazepine 200 mg 200 mg BID PO Last administered on 04/03/16 21:11; Admin Dose 200 MG; Start 04/01/16 at 21:00 Potassium Chloride/Dextrose/ Sod Cl (D5-1/2ns + KCl 20 Meq) 1,000 ml @ 80 mls/ hr [id number] IV Last administered on 04/04/16 02:07; Admin Dose 80 MLS/HR; Start 04/01/16 at 15:06 Ondansetron HCl (Zofran Inj) 4 mg Q6H PRN IV NAUSEA AND/OR VOMITING Last administered on 04/03/16 08:37; Admin Dose 4 MG; Start 04/01/16 at 15:30 Acetaminophen (Tylenol Tab) 650 mg Q6H PRN PO PAIN LEVEL 1-3 OR FEVER Last administered on 04/03/16 22:54; Admin Dose 650 MG; Start 04/01/16 at 15:30 Acetaminophen (Tylenol Supp) 650 mg Q6H PRN [place] PAIN LEVEL 1-3 OR FEVER; Start 04/01/16 at 15:30 Morphine Sulfate (morphine) 1 mg Q4H PRN IV SEVERE PAIN LEVEL 7-10 Last administered on 04/04/16 05:30; Admin Dose 1 MG; Start 04/01/16 at 15:30 Docusate Sodium (Colace) 100 mg Q12H PRN PO CONSTIPATION; Start 04/01/16 at 15: 30 Bisacodyl (Dulcolax Supp) 10 mg DAILY PRN [place] CONSTIPATION; Start 04/01/16 at 15: 30 Zolpidem Tartrate 5 mg 5 mg QHS PRN PO SLEEP; Start 04/01/16 at 15:30 Ciprofloxacin/ Dextrose (Cipro Ivpb) 200 ml @ 200 mls/hr Q12H IVPB Last administered on 04/04/16 04:22; Admin Dose 200 MLS/HR; Start 04/01/16 at 16:00 Lorazepam (Ativan) 1 mg Q8H PRN PO ANXIETY; Start 04/01/16 at 16:17 Pantoprazole (Protonix Iv) 40 mg BID IV Last administered on 04/03/16 21:11; Admin Dose 40 MG; Start 04/02/16 at 21:00 Metoclopramide HCl (Reglan) 10 mg Q6 IV Last administered on 04/04/16 05:29; Admin Dose 10 MG; Start 04/02/16 at 18:00 JOEY MANN Apr 04, 2016 08:44
[2016-04-04] MEDS: carBAMAZepine CHEW 100 MG CHEW PO SCH ×2 (09:42→20:26)
[2016-04-04] MEDS: PANTOPRAZOLE 40 MG INJ IV SCH ×2 (09:42→22:12)
[2016-04-04 14:46] LABS: ALBUMIN 2.7 g/dl (3.3-4.9)
[2016-04-04 14:47] LABS: POTASSIUM 3.7 mmol/L (3.5-5.1)
[2016-04-04 14:48] LABS: PHOSPHORUS 2.3 mg/dl (2.5-4.9)
[2016-04-04 14:49] LABS: ALBUMIN/GLOBULIN RATIO 1.03; BILIRUBIN,INDIRECT 0.6 mg/dl (0-1.1); BILIRUBIN,TOTAL 0.6 mg/dl (0.2-1.3); CREATININE 0.37 mg/dl (0.44-1.00); MAGNESIUM 1.2 mg/dl (1.7-2.5); TOTAL PROTEIN 5.3 g/dl (6.1-8.1)
[2016-04-04 14:50] LABS: CALCIUM 7.7 mg/dl (8.4-10.2)
[2016-04-04 16:17] LABS: EOSINOPHILS % 0.6 % (0.0-7.0); HEMATOCRIT 27.5 % (37.0-47.0); HEMOGLOBIN 9.4 g/dl (12.0-16.0); LYMPHOCYTES # 0.9 10^3/ul (0.8-2.9); LYMPHOCYTES % 22.5 % (15.0-51.0); MEAN CORPUSCULAR HEMOGLOBIN 35.7 pg (29.0-33.0); MEAN CORPUSCULAR HGB CONC 34.2 g/dl (32.0-37.0); MEAN CORPUSCULAR VOLUME 104.4 fl (82.0-101.0); MEAN PLATELET VOLUME 6.9 fl (7.4-10.4); MONOCYTE # 0.3 10^3/ul (0.3-0.9); MONOCYTES % 6.7 % (0.0-11.0); NEUTROPHIL # 2.7 10^3/ul (1.6-7.5); NEUTROPHILS % 70.2 % (39.0-77.0); PLATELET COUNT 127 10^3/UL (140-440); RED BLOOD COUNT 2.63 10^6/ul (4.20-5.40); RED CELL DISTRIBUTION WIDTH 22.6 % (11.5-14.5); UNCORRECTED WBC 3.9 10^3/ul (4.8-10.8); WHITE BLOOD COUNT 3.9 10^3/ul (4.8-10.8)
[2016-04-04 16:18] LABS: CONDITION 1; LH ANALYZER COMMENTS 1
[2016-04-04] MEDS ORDERED: MAGNESIUM SULFATE 3 GM in SOD CHLORIDE 0.9% 100 ML IVPB ONE ×2 (17:00→22:30)
--- NOTE | 2016-04-04 17:09 | PN ---
Date/Time of Note Date/Time of Note DATE: 04/04/16 TIME: 17:00 Assessment/Plan VTE Prophylaxis VTE Prophylaxis Intervention: SCD's Lines/Catheters [facility] Saline Lock Urinary Cath still in place: No Assessment/Plan Assessment/Plan PROBLEMS: Abdominal pain with associated nausea and vomiting 2/2 Alcoholic Pancreatitis: improved USS findings concerning for probable acalculous cholecystitis Seizure disorder. Continue anti-seizure medications. Small Gastric ulcer * Seen on EGD 04/02/16 Moderate Macrocytic anemia 2/2 alcoholism s/p transfusion 04/02/16 Transaminitis likely 2/2 hepatomegaly from fatty liver and chronic alcohol abuse Hypernatremia. Improving. Alcohol abuse Hypophosphatemia Hypomagnesemia Hypocalcemia PLAN: Appreciate GI input / Continue proton pump inhibitors / f/u biopsies / Will need outpt Colonoscopy Continue IVF / Amylase & Lipase trending / advance diet to clears Add Flagyl to regimen and obtain HIDA scan, if negative , may d/c abx Replace electrolytes Alcohol cessation counselling done and will continue to be reinforced throughout hospitalization. Resources to help with cessation per Social work Continue seizure precautions / pain control/ antiemetics/ supportive care PROPHYLAXIS: Pepcid, SCDs Subjective 24 Hr Interval Summary Free Text/Dictation abd pain better now asking for food Exam/Review of Systems Vital Signs Vitals Vital Signs Date Time Temp Pulse Resp B/P Pulse Ox O2 Delivery O2 Flow Rate FiO2 04/04/16 08:10 98.3 94 18 108/69 96 04/02/16 18:48 Room Air Intake and Output 04/03/16 04/03/16 04/04/16 15:00 23:00 07:00 Intake Total 480 ml 724.5455 ml 870 ml Output Total 300 ml Balance 480 ml 724.5455 ml 570 ml Exam GENERAL: This is a fragile looking female patient lying in bed in no apparent distress. HEENT: Head normocephalic and atraumatic. Eyes: Anicteric sclerae. Conjunctivae clear. ENT: Nasal septum is midline. Oral mucosa is dry. NECK: Supple. No JVD noticed. RESPIRATORY: Bilaterally clear to auscultation. No adventitious breath sounds heard. No use of accessory muscles of respiration. CARDIAC: Regular rate and rhythm. No murmurs heard. ABDOMEN: Soft. Less tender. Bowel sounds hypoactive in all 4 quadrants. GENITOURINARY: Deferred. EXTREMITIES: No cyanosis, no clubbing, no edema. Peripheral pulses are palpable. NEUROLOGIC: The patient is awake, alert and oriented. Cranial nerves are grossly intact. Results Result Diagram: 04/04/16 1605 04/04/16 1420 Results 24 hrs Laboratory Tests Test 04/04/16 14:20 04/04/16 16:05 Alanine Aminotransferase (ALT/SGPT) 45 Albumin 2.7 L Albumin/Globulin Ratio 1.03 Alkaline Phosphatase 141 H Amylase Level 76 Anion Gap 13 Aspartate Amino Transf (AST/SGOT) 103 H Blood Urea Nitrogen 3 L Calcium Level 7.7 L Carbon Dioxide Level 24 Chloride Level 100 Creatinine 0.37 L Direct Bilirubin 0.00 Globulin 2.60 Glucose Level 112 Indirect Bilirubin 0.6 Lipase 323 H Magnesium Level 1.2 L Phosphorus Level 2.3 L Potassium Level 3.7 Sodium Level 133 L Total Bilirubin 0.6 Total Protein 5.3 L Basophils # 0.0 Basophils % 0.0 Blood Morphology Comment Eosinophils # 0.0 Eosinophils % 0.6 Hematocrit 27.5 L Hemoglobin 9.4 L Lymphocytes # 0.9 Lymphocytes % 22.5 Mean Corpuscular Hemoglobin 35.7 H Mean Corpuscular Hemoglobin Concent 34.2 Mean Corpuscular Volume 104.4 H Mean Platelet Volume 6.9 #L Monocytes # 0.3 Monocytes % 6.7 Neutrophils # 2.7 Neutrophils % 70.2 Nucleated Red Blood Cells # 0.0 Nucleated Red Blood Cells % 0.0 Platelet Count 127 L Red Blood Count 2.63 L Red Cell Distribution Width 22.6 H White Blood Count 3.9 L Medications Medications Current Medications Carbamazepine 200 mg 200 mg BID PO Last administered on 04/04/16 09:42; Admin Dose 200 MG; Start 04/01/16 at 21:00 Potassium Chloride/Dextrose/ Sod Cl (D5-1/2ns + KCl 20 Meq) 1,000 ml @ 80 mls/ hr [id number] IV Last administered on 04/04/16 15:33; Admin Dose 80 MLS/HR; Start 04/01/16 at 15:06 Ondansetron HCl (Zofran Inj) 4 mg Q6H PRN IV NAUSEA AND/OR VOMITING Last administered on 04/03/16 08:37; Admin Dose 4 MG; Start 04/01/16 at 15:30 Acetaminophen (Tylenol Tab) 650 mg Q6H PRN PO PAIN LEVEL 1-3 OR FEVER Last administered on 04/03/16 22:54; Admin Dose 650 MG; Start 04/01/16 at 15:30 Acetaminophen (Tylenol Supp) 650 mg Q6H PRN [place] PAIN LEVEL 1-3 OR FEVER; Start 04/01/16 at 15:30 Morphine Sulfate (morphine) 1 mg Q4H PRN IV SEVERE PAIN LEVEL 7-10 Last administered on 04/04/16 13:47; Admin Dose 1 MG; Start 04/01/16 at 15:30 Docusate Sodium (Colace) 100 mg Q12H PRN PO CONSTIPATION; Start 04/01/16 at 15: 30 Bisacodyl (Dulcolax Supp) 10 mg DAILY PRN [place] CONSTIPATION; Start 04/01/16 at 15: 30 Zolpidem Tartrate 5 mg 5 mg QHS PRN PO SLEEP; Start 04/01/16 at 15:30 Ciprofloxacin/ Dextrose (Cipro Ivpb) 200 ml @ 200 mls/hr Q12H IVPB Last administered on 04/04/16 15:32; Admin Dose 200 MLS/HR; Start 04/01/16 at 16:00 Lorazepam (Ativan) 1 mg Q8H PRN PO ANXIETY; Start 04/01/16 at 16:17 Pantoprazole (Protonix Iv) 40 mg BID IV Last administered on 04/04/16 09:42; Admin Dose 40 MG; Start 04/02/16 at 21:00 Metoclopramide HCl (Reglan) 10 mg Q6 IV Last administered on 04/04/16 13:02; Admin Dose 10 MG; Start 04/02/16 at 18:00 GORDON JAMES Apr 04, 2016 17:09
[2016-04-04] MEDS: metroNIDAZOLE 500 MG/NS (PMX) 100 ML IVPB SCH (17:37)
[2016-04-04] MEDS ORDERED: POTASSIUM PHOSPHATE 15 MM in SOD CHLORIDE 0.9% 250 ML IVPB ONE (18:45)
[2016-04-04 20:17] VITALS: BP 120/69; RESP 17
[2016-04-05] MEDS: metroNIDAZOLE 500 MG/NS (PMX) 100 ML IVPB SCH ×4 (00:21→22:30)
[2016-04-05] MEDS: ZOLPIDEM 5 MG TAB PO PRN ×2 (01:16→21:22)
[2016-04-05] MEDS: morphine 2 MG INJ IV PRN ×5 (03:20→23:36)
[2016-04-05] MEDS: CIPROFLOXACIN 400MG/D5W 200 ML IVPB SCH ×2 (04:05→15:29)
[2016-04-05] MEDS: METOCLOPRAMIDE 10 MG INJ IV SCH ×4 (05:30→23:35)
[2016-04-05 06:08] LABS: ALBUMIN 2.3 g/dl (3.3-4.9)
[2016-04-05 06:09] LABS: POTASSIUM 3.5 mmol/L (3.5-5.1)
[2016-04-05 06:11] LABS: BILIRUBIN,INDIRECT 0.4 mg/dl (0-1.1); BILIRUBIN,TOTAL 0.4 mg/dl (0.2-1.3); CREATININE 0.4 mg/dl (0.44-1.00); TOTAL PROTEIN 4.6 g/dl (6.1-8.1)
[2016-04-05 06:12] LABS: CALCIUM 7.3 mg/dl (8.4-10.2)
[2016-04-05 06:21] LABS: BASOPHILS % 0.2 % (0.0-2.0); EOSINOPHILS % 0.8 % (0.0-7.0); HEMATOCRIT 27.1 % (37.0-47.0); HEMOGLOBIN 9.3 g/dl (12.0-16.0); LYMPHOCYTES # 0.8 10^3/ul (0.8-2.9); LYMPHOCYTES % 19.3 % (15.0-51.0); MEAN CORPUSCULAR HEMOGLOBIN 36.3 pg (29.0-33.0); MEAN CORPUSCULAR HGB CONC 34.2 g/dl (32.0-37.0); MEAN CORPUSCULAR VOLUME 106.4 fl (82.0-101.0); MEAN PLATELET VOLUME 7.5 fl (7.4-10.4); MONOCYTE # 0.4 10^3/ul (0.3-0.9); MONOCYTES % 8.8 % (0.0-11.0); NEUTROPHIL # 3.1 10^3/ul (1.6-7.5); NEUTROPHILS % 70.9 % (39.0-77.0); PLATELET COUNT 118 10^3/UL (140-440); RED BLOOD COUNT 2.55 10^6/ul (4.20-5.40); RED CELL DISTRIBUTION WIDTH 22.7 % (11.5-14.5); UNCORRECTED WBC 4.4 10^3/ul (4.8-10.8); WHITE BLOOD COUNT 4.4 10^3/ul (4.8-10.8)
[2016-04-05 06:27] LABS: CONDITION 1; LH ANALYZER COMMENTS 1; SUSPECT 1
[2016-04-05] MEDS: D5W-0.45 NACL + KCL 20 MEQ 1,000 ML IV SCH ×2 (06:36→17:56)
[2016-04-05 08:15] VITALS: BP 132/85; RESP 16
[2016-04-05] MEDS: PANTOPRAZOLE 40 MG INJ IV SCH ×2 (08:49→20:52)
[2016-04-05] MEDS: carBAMAZepine CHEW 100 MG CHEW PO SCH (08:49)
[2016-04-05] MEDS: FOLIC ACID 1 MG TAB PO SCH (14:15)
--- NOTE | 2016-04-05 14:19 | PN ---
Date/Time of Note Date/Time of Note DATE: 04/05/16 TIME: 14:14 Assessment/Plan VTE Prophylaxis VTE Prophylaxis Intervention: SCD's Lines/Catheters IV [facility] Type (from [facility] Saline Lock Urinary Cath still in place: No Assessment/Plan Chief Complaint/Hosp Course Assessment/Plan 1. Abdominal pain with associated nausea and vomiting 2/2 Alcoholic Pancreatitis: improving [employer] has been consulted, will follow the recommendations Appreciate GI input / Continue proton pump inhibitors / f/u biopsies / Will need outpt Colonoscopy 2. acalculous cholecystitis Follow-up results of HIDA scan 3. Seizure disorder. Continue anti-seizure medications. 4. Small Gastric ulcer * Seen on EGD 04/02/16, continue PPI 5. Moderate Macrocytic anemia 2/2 alcoholism s/p transfusion 04/02/16 Continue to monitor, will transfuse if hemoglobin is less than 7.5 6. Transaminitis likely 2/2 hepatomegaly from fatty liver and chronic alcohol abuse Continue to monitor 7. Hypernatremia. Improving status post IV fluids Alcohol abuse Education was provided, no sign of delirium tremens or withdrawal, patient placed on folic acid, multivitamin and thiamine Alcohol cessation counselling done and will continue to be reinforced throughout hospitalization. Resources to help with cessation per Social work Hypophosphatemia Likely secondary to alcohol abuse Hypomagnesemia Likely secondary to alcohol abuse, repleted Hypocalcemia Continue seizure precautions / pain control/ antiemetics/ supportive care Continue monitor patient closely for recommendation management treatment as clinical course Problems: Subjective 24 Hr Interval Summary Free Text/Dictation She continues to complain of abdominal discomfort Continue to have nausea without any evidence of vomiting Exam/Review of Systems Vital Signs Vitals Vital Signs Date Time Temp Pulse Resp B/P Pulse Ox O2 Delivery O2 Flow Rate FiO2 04/05/16 08:15 98.8 89 16 132/85 97 04/02/16 18:48 Room Air Intake and Output 04/04/16 04/04/16 04/05/16 14:59 22:59 06:59 Intake Total 1340 ml 920 ml Output Total 550 ml Balance 1340 ml 370 ml Exam General: The patient is well-developed, Not in acute distress. HEENT: Atraumatic, normocephalic. The pupils are equal and round . Neck: Supple with full range of motion. Chest: Normal expansion of the thorax during inspiration Lungs: Clear to auscultation bilaterally Heart: Normal S1-S2, Regular rhythm and rate. Abdomen: Soft , midepigastric tenderness, nondistended , bowel sounds are present. Extremities: Normal to inspection, no edema no cyanosis Neurologic: Normal mental status,The patient is awake, alert and oriented . Results Result Diagram: 04/05/16 0505 04/05/16 0505 Results 24 hrs Laboratory Tests Test 04/04/16 14:20 04/04/16 16:05 04/05/16 05:05 Alanine Aminotransferase (ALT/SGPT) 45 45 Albumin 2.7 L 2.3 L Albumin/Globulin Ratio 1.03 1.00 Alkaline Phosphatase 141 H 123 H Amylase Level 76 80 Anion Gap 13 14 Aspartate Amino Transf (AST/SGOT) 103 H 77 H Blood Urea Nitrogen 3 L 3 L Calcium Level 7.7 L 7.3 L Carbon Dioxide Level 24 23 Chloride Level 100 101 Creatinine 0.37 L 0.40 L Direct Bilirubin 0.00 0.00 Globulin 2.60 2.30 Glucose Level 112 95 Indirect Bilirubin 0.6 0.4 Lipase 323 H 301 H Magnesium Level 1.2 L Phosphorus Level 2.3 L Potassium Level 3.7 3.5 Sodium Level 133 L 134 L Total Bilirubin 0.6 0.4 Total Protein 5.3 L 4.6 L Basophils # 0.0 0.0 Basophils % 0.0 0.2 Blood Morphology Comment Eosinophils # 0.0 0.0 Eosinophils % 0.6 0.8 Hematocrit 27.5 L 27.1 L Hemoglobin 9.4 L 9.3 L Lymphocytes # 0.9 0.8 Lymphocytes % 22.5 19.3 Mean Corpuscular Hemoglobin 35.7 H 36.3 H Mean Corpuscular Hemoglobin Concent 34.2 34.2 Mean Corpuscular Volume 104.4 H 106.4 H Mean Platelet Volume 6.9 #L 7.5 Monocytes # 0.3 0.4 Monocytes % 6.7 8.8 Neutrophils # 2.7 3.1 Neutrophils % 70.2 70.9 Nucleated Red Blood Cells # 0.0 0.0 Nucleated Red Blood Cells % 0.0 0.0 Platelet Count 127 L 118 L Red Blood Count 2.63 L 2.55 L Red Cell Distribution Width 22.6 H 22.7 H White Blood Count 3.9 L 4.4 L Medications Medications Current Medications Potassium Chloride/Dextrose/ Sod Cl (D5-1/2ns + KCl 20 Meq) 1,000 ml @ 80 mls/ hr [id number] IV Last administered on 04/04/16 15:33; Admin Dose 80 MLS/HR; Start 04/01/16 at 15:06 Ondansetron HCl (Zofran Inj) 4 mg Q6H PRN IV NAUSEA AND/OR VOMITING Last administered on 04/03/16 08:37; Admin Dose 4 MG; Start 04/01/16 at 15:30 Acetaminophen (Tylenol Tab) 650 mg Q6H PRN PO PAIN LEVEL 1-3 OR FEVER Last administered on 04/03/16 22:54; Admin Dose 650 MG; Start 04/01/16 at 15:30 Acetaminophen (Tylenol Supp) 650 mg Q6H PRN [place] PAIN LEVEL 1-3 OR FEVER; Start 04/01/16 at 15:30 Morphine Sulfate (morphine) 1 mg Q4H PRN IV SEVERE PAIN LEVEL 7-10 Last administered on 04/05/16 08:49; Admin Dose 1 MG; Start 04/01/16 at 15:30 Docusate Sodium (Colace) 100 mg Q12H PRN PO CONSTIPATION; Start 04/01/16 at 15: 30 Bisacodyl (Dulcolax Supp) 10 mg DAILY PRN [place] CONSTIPATION; Start 04/01/16 at 15: 30 Zolpidem Tartrate 5 mg 5 mg QHS PRN PO SLEEP Last administered on 04/05/16 01: 16; Admin Dose 5 MG; Start 04/01/16 at 15:30 Ciprofloxacin/ Dextrose (Cipro Ivpb) 200 ml @ 200 mls/hr Q12H IVPB Last administered on 04/05/16 04:05; Admin Dose 200 MLS/HR; Start 04/01/16 at 16:00 Lorazepam (Ativan) 1 mg Q8H PRN PO ANXIETY; Start 04/01/16 at 16:17 Pantoprazole (Protonix Iv) 40 mg BID IV Last administered on 04/05/16 08:49; Admin Dose 40 MG; Start 04/02/16 at 21:00 Metoclopramide HCl 10 mg 10 mg Q6 IV Last administered on 04/05/16 12:30; Admin Dose 10 MG; Start 04/02/16 at 18:00 Metronidazole (Flagyl 500 Mg (Pmx)) 100 ml @ 100 mls/hr Q8 IVPB Last administered on 04/05/16 05:31; Admin Dose 100 MLS/HR; Start 04/04/16 at 18:00 Carbamazepine (Tegretol) 200 mg BID PO Last administered on 04/05/16 08:49; Admin Dose 200 MG; Start 04/04/16 at 21:00 Folic Acid (Folic Acid) 1 mg DAILY PO ; Start 04/05/16 at 14:00 AMA DUNN MD Apr 05, 2016 14:18
--- NOTE | 2016-04-05 14:48 | RADRPT ---
PROCEDURE: HIDA scan CLINICAL INDICATION: 60 -year-old patient with abdominal pain. TECHNIQUE: Following the intravenous injection of 7.7 mCi of Tc-99m mebrofenin, multiple images of the abdomen were obtained up to 35 minutes post injection. COMPARISON: No prior studies. FINDINGS: The liver is promptly visualized, demonstrates homogeneous distribution of radionuclide. There is visualization of the common bile duct, gallbladder and gastrointestinal activity within nor mal time. IMPRESSION: Unremarkable HIDA scan with no evidence to suggest the presence of common bile or cystic ducts obstr uction. RPTAT: HH .Irena Petty MD, Date Time Electronically viewed and signed by .Irena Petty MD, on 04/05/2016 14:48 .L/
--- NOTE | 2016-04-05 19:29 | PN ---
Date/Time of Note Date/Time of Note DATE: 04/05/16 TIME: 19:22 Assessment/Plan VTE Prophylaxis VTE Prophylaxis Intervention: SCD's Lines/Catheters IV Catheter Type (from Nrs): Peripheral IV Urinary Cath still in place: No Assessment/Plan Assessment/Plan Abdominal pain/Nausea and vomiting/improved * EGD 04-02-16: 1. Small 5 mm clean based antral gastric ulceration. Biopsies were obtained. Pancreatitis/resolved * Likely secondary to EtOH abuse Anemia Transaminitis Elevated ferritin and iron saturation Rule out hemochromatosis Hypokalemia. History of seizure disorder. Further recommendations pending clinical course Plan: Repeat ferritin and iron saturation Advance diet Subjective 24 Hr Interval Summary Free Text/Dictation Course reviewed with nursing staff Patient reports significant improvement in abdominal pain Denies nausea or vomiting Tolerating current diet Exam/Review of Systems Vital Signs Vitals Vital Signs Date Time Temp Pulse Resp B/P Pulse Ox O2 Delivery O2 Flow Rate FiO2 04/05/16 08:15 98.8 89 16 132/85 97 04/02/16 18:48 Room Air Intake and Output 04/04/16 04/04/16 04/05/16 15:00 23:00 07:00 Intake Total 1340 ml 920 ml Output Total 550 ml Balance 1340 ml 370 ml Exam Constitutional: alert, oriented, well developed Head: atraumatic, normocephalic Eyes: EOMI, PERRL, nl conjunctiva, nl lids, nl sclera ENMT: nl external ears & nose, nl lips & teeth, nl nasal mucosa & septum Neck: non-tender, supple Respiratory: clear to auscultation, normal air movement Cardiovascular: nl pulses, regular rate and rhythm Gastrointestinal: nl liver, spleen, non-tender, soft Musculoskeletal: nl extremities to inspection Skin: nl turgor, No rash or lesions Results Result Diagram: 04/05/16 0505 04/05/16 0505 Results 24 hrs Laboratory Tests Test 04/05/16 05:05 Alanine Aminotransferase (ALT/SGPT) 45 Albumin 2.3 L Albumin/Globulin Ratio 1.00 Alkaline Phosphatase 123 H Amylase Level 80 Anion Gap 14 Aspartate Amino Transf (AST/SGOT) 77 H Basophils # 0.0 Basophils % 0.2 Blood Morphology Comment Blood Urea Nitrogen 3 L Calcium Level 7.3 L Carbon Dioxide Level 23 Chloride Level 101 Creatinine 0.40 L Direct Bilirubin 0.00 Eosinophils # 0.0 Eosinophils % 0.8 Globulin 2.30 Glucose Level 95 Hematocrit 27.1 L Hemoglobin 9.3 L Indirect Bilirubin 0.4 Lipase 301 H Lymphocytes # 0.8 Lymphocytes % 19.3 Mean Corpuscular Hemoglobin 36.3 H Mean Corpuscular Hemoglobin Concent 34.2 Mean Corpuscular Volume 106.4 H Mean Platelet Volume 7.5 Monocytes # 0.4 Monocytes % 8.8 Neutrophils # 3.1 Neutrophils % 70.9 Nucleated Red Blood Cells # 0.0 Nucleated Red Blood Cells % 0.0 Platelet Count 118 L Potassium Level 3.5 Red Blood Count 2.55 L Red Cell Distribution Width 22.7 H Sodium Level 134 L Total Bilirubin 0.4 Total Protein 4.6 L White Blood Count 4.4 L Medications Medications Current Medications Potassium Chloride/Dextrose/ Sod Cl (D5-1/2ns + KCl 20 Meq) 1,000 ml @ 80 mls/ hr [id number] IV Last administered on 04/05/16 17:56; Admin Dose 80 MLS/HR; Start 04/01/16 at 15:06 Ondansetron HCl (Zofran Inj) 4 mg Q6H PRN IV NAUSEA AND/OR VOMITING Last administered on 04/03/16 08:37; Admin Dose 4 MG; Start 04/01/16 at 15:30 Acetaminophen (Tylenol Tab) 650 mg Q6H PRN PO PAIN LEVEL 1-3 OR FEVER Last administered on 04/03/16 22:54; Admin Dose 650 MG; Start 04/01/16 at 15:30 Acetaminophen (Tylenol Supp) 650 mg Q6H PRN [place] PAIN LEVEL 1-3 OR FEVER; Start 04/01/16 at 15:30 Morphine Sulfate (morphine) 1 mg Q4H PRN IV SEVERE PAIN LEVEL 7-10 Last administered on 04/05/16 14:30; Admin Dose 1 MG; Start 04/01/16 at 15:30 Docusate Sodium (Colace) 100 mg Q12H PRN PO CONSTIPATION; Start 04/01/16 at 15: 30 Bisacodyl (Dulcolax Supp) 10 mg DAILY PRN [place] CONSTIPATION; Start 04/01/16 at 15: 30 Zolpidem Tartrate 5 mg 5 mg QHS PRN PO SLEEP Last administered on 04/05/16 01: 16; Admin Dose 5 MG; Start 04/01/16 at 15:30 Ciprofloxacin/ Dextrose (Cipro Ivpb) 200 ml @ 200 mls/hr Q12H IVPB Last administered on 04/05/16 15:29; Admin Dose 200 MLS/HR; Start 04/01/16 at 16:00 Lorazepam (Ativan) 1 mg Q8H PRN PO ANXIETY; Start 04/01/16 at 16:17 Pantoprazole (Protonix Iv) 40 mg BID IV Last administered on 04/05/16 08:49; Admin Dose 40 MG; Start 04/02/16 at 21:00 Metoclopramide HCl 10 mg 10 mg Q6 IV Last administered on 04/05/16 17:56; Admin Dose 10 MG; Start 04/02/16 at 18:00 Metronidazole (Flagyl 500 Mg (Pmx)) 100 ml @ 100 mls/hr Q8 IVPB Last administered on 04/05/16 14:15; Admin Dose 100 MLS/HR; Start 04/04/16 at 18:00 Folic Acid (Folic Acid) 1 mg DAILY PO Last administered on 04/05/16 14:15; Admin Dose 1 MG; Start 04/05/16 at 14:00 Thiamine HCl (Vitamin B1) 100 mg DAILY PO ; Start 04/06/16 at 09:00 Multivitamins Therapeutic (Theragran) 1 tab DAILY PO ; Start 04/06/16 at 09:00 Carbamazepine (Tegretol) 200 mg BID PO ; Start 04/05/16 at 21:00 EUGENIO REDMOND MD Apr 05, 2016 19:29
[2016-04-05 20:00] VITALS: BP 117/75; RESP 18
[2016-04-05] MEDS: CARBAMAZEPINE 200 MG TAB PO SCH (20:45)
[2016-04-06] MEDS: morphine 2 MG INJ IV PRN ×5 (03:45→20:23)
[2016-04-06] MEDS: CIPROFLOXACIN 400MG/D5W 200 ML IVPB SCH ×2 (04:04→16:08)
[2016-04-06] MEDS: metroNIDAZOLE 500 MG/NS (PMX) 100 ML IVPB SCH ×3 (05:34→21:29)
[2016-04-06] MEDS: METOCLOPRAMIDE 10 MG INJ IV SCH ×4 (05:34→23:55)
[2016-04-06 08:49] VITALS: BP 119/73; RESP 18
[2016-04-06] MEDS: D5W-0.45 NACL + KCL 20 MEQ 1,000 ML IV SCH ×2 (09:28→20:21)
[2016-04-06] MEDS: PANTOPRAZOLE 40 MG INJ IV SCH ×2 (09:28→20:21)
[2016-04-06] MEDS: FOLIC ACID 1 MG TAB PO SCH (09:28)
[2016-04-06] MEDS: MULTIVITAMINS THERAPEUTIC TAB PO SCH (09:28)
[2016-04-06] MEDS: THIAMINE 100 MG TAB PO SCH (09:28)
[2016-04-06] MEDS: CARBAMAZEPINE 200 MG TAB PO SCH ×2 (09:29→20:22)
[2016-04-06 10:18] LABS: BASOPHILS % 0.7 % (0.0-2.0); EOSINOPHILS % 0.6 % (0.0-7.0); HEMATOCRIT 26.9 % (37.0-47.0); HEMOGLOBIN 9.1 g/dl (12.0-16.0); LYMPHOCYTES # 0.9 10^3/ul (0.8-2.9); LYMPHOCYTES % 20.4 % (15.0-51.0); MEAN CORPUSCULAR HEMOGLOBIN 35.3 pg (29.0-33.0); MEAN CORPUSCULAR HGB CONC 33.8 g/dl (32.0-37.0); MEAN CORPUSCULAR VOLUME 104.7 fl (82.0-101.0); MEAN PLATELET VOLUME 7.2 fl (7.4-10.4); MONOCYTE # 0.4 10^3/ul (0.3-0.9); MONOCYTES % 10.1 % (0.0-11.0); NEUTROPHIL # 2.9 10^3/ul (1.6-7.5); NEUTROPHILS % 68.2 % (39.0-77.0); PLATELET COUNT 106 10^3/UL (140-440); RED BLOOD COUNT 2.57 10^6/ul (4.20-5.40); RED CELL DISTRIBUTION WIDTH 22.6 % (11.5-14.5); UNCORRECTED WBC 4.2 10^3/ul (4.8-10.8); WHITE BLOOD COUNT 4.2 10^3/ul (4.8-10.8)
[2016-04-06 10:27] LABS: ALBUMIN 2.3 g/dl (3.3-4.9); POTASSIUM 3.4 mmol/L (3.5-5.1)
[2016-04-06 10:28] LABS: IRON 77 ug/dl (35-150)
[2016-04-06 10:29] LABS: BILIRUBIN,INDIRECT 0.3 mg/dl (0-1.1); BILIRUBIN,TOTAL 0.3 mg/dl (0.2-1.3); CREATININE 0.38 mg/dl (0.44-1.00)
[2016-04-06 10:30] LABS: ALBUMIN/GLOBULIN RATIO 0.92; CALCIUM 7.3 mg/dl (8.4-10.2); CONDITION 1; TOTAL PROTEIN 4.8 g/dl (6.1-8.1)
[2016-04-06 10:31] LABS: LH ANALYZER COMMENTS 1
[2016-04-06 10:37] LABS: TOTAL IRON BINDING CAPACITY 149 ug/dl (241-421)
--- NOTE | 2016-04-06 13:53 | PN ---
Date/Time of Note Date/Time of Note DATE: 04/06/16 TIME: 13:51 Assessment/Plan VTE Prophylaxis VTE Prophylaxis Intervention: SCD's Lines/Catheters IV [facility] (from [facility] Peripheral IV Urinary Cath still in place: No Assessment/Plan Chief Complaint/Hosp Course Assessment/Plan 1. Abdominal pain with associated nausea and vomiting 2/2 Alcoholic Pancreatitis: improving Condemnation Engineer has been consulted, will follow the recommendations Appreciate GI input / Continue proton pump inhibitors / f/u biopsies / Will need outpt Colonoscopy 2. acalculous cholecystitis Negative HIDA scan 3. Seizure disorder. Continue anti-seizure medications. 4. Small Gastric ulcer * Seen on EGD 04/02/16, continue PPI 5. Moderate Macrocytic anemia 2/2 alcoholism s/p transfusion 04/02/16 Continue to monitor, will transfuse if hemoglobin is less than 7.5 6. Transaminitis likely 2/2 hepatomegaly from fatty liver and chronic alcohol abuse Continue to monitor 7. Hypernatremia. Improving status post IV fluids Alcohol abuse Education was provided, no sign of delirium tremens or withdrawal, patient placed on folic acid, multivitamin and thiamine Alcohol cessation counselling done and will continue to be reinforced throughout hospitalization. Resources to help with cessation per Social work Hypophosphatemia Likely secondary to alcohol abuse Hypomagnesemia Likely secondary to alcohol abuse, repleted Debility PT OT eval and treat Continue seizure precautions / pain control/ antiemetics/ supportive care Continue monitor patient closely for recommendation management treatment as clinical course actuary manager consult for placement status post physical therapy evaluation Problems: Subjective 24 Hr Interval Summary Free Text/Dictation Patient denies of any abdominal discomfort Complains of having generalized weakness and difficulty with ambulation No nausea vomiting diarrhea Exam/Review of Systems Vital Signs Vitals Vital Signs Date Time Temp Pulse Resp B/P Pulse Ox O2 Delivery O2 Flow Rate FiO2 04/06/16 08:49 98.3 94 18 119/73 96 04/02/16 18:48 Room Air Intake and Output 04/05/16 04/05/16 04/06/16 15:00 23:00 07:00 Intake Total 100 ml 1930 ml 1620 ml Output Total 1050 ml 840 ml Balance 100 ml 880 ml 780 ml Exam General: The patient is well-developed, Not in acute distress. HEENT: Atraumatic, normocephalic. The pupils are equal and round . Neck: Supple with full range of motion. Chest: Normal expansion of the thorax during inspiration Lungs: Clear to auscultation bilaterally Heart: Normal S1-S2, Regular rhythm and rate. Abdomen: Soft , nontender, nondistended , bowel sounds are present. Extremities: Normal to inspection, no edema no cyanosis Neurologic: Normal mental status,The patient is awake, alert and oriented . Results Result Diagram: 04/06/16 0940 04/06/16 0940 Results 24 hrs Laboratory Tests Test 04/06/16 09:40 Alanine Aminotransferase (ALT/SGPT) 33 Albumin 2.3 L Albumin/Globulin Ratio 0.92 Alkaline Phosphatase 123 H Anion Gap 13 Aspartate Amino Transf (AST/SGOT) 57 H Basophils # 0.0 Basophils % 0.7 Blood Morphology Comment Blood Urea Nitrogen 2 L Calcium Level 7.3 L Carbon Dioxide Level 23 Chloride Level 99 Creatinine 0.38 L Direct Bilirubin 0.00 Eosinophils # 0.0 Eosinophils % 0.6 Ferritin 782.0 H Globulin 2.50 Glucose Level 109 Hematocrit 26.9 L Hemoglobin 9.1 L Indirect Bilirubin 0.3 Iron Level 77 Lipase 213 Lymphocytes # 0.9 Lymphocytes % 20.4 Mean Corpuscular Hemoglobin 35.3 H Mean Corpuscular Hemoglobin Concent 33.8 Mean Corpuscular Volume 104.7 H Mean Platelet Volume 7.2 L Monocytes # 0.4 Monocytes % 10.1 Neutrophils # 2.9 Neutrophils % 68.2 Nucleated Red Blood Cells # 0.0 Nucleated Red Blood Cells % 0.0 Percent Iron Saturation 52 Platelet Count 106 L Potassium Level 3.4 L Red Blood Count 2.57 L Red Cell Distribution Width 22.6 H Sodium Level 132 L Total Bilirubin 0.3 Total Iron Binding Capacity 149 L Total Protein 4.8 L White Blood Count 4.2 L Medications Medications Current Medications Potassium Chloride/Dextrose/ Sod Cl (D5-1/2ns + KCl 20 Meq) 1,000 ml @ 80 mls/ hr [id number] IV Last administered on 04/06/16 09:28; Admin Dose 80 MLS/HR; Start 04/01/16 at 15:06 Ondansetron HCl (Zofran Inj) 4 mg Q6H PRN IV NAUSEA AND/OR VOMITING Last administered on 04/03/16 08:37; Admin Dose 4 MG; Start 04/01/16 at 15:30 Acetaminophen (Tylenol Tab) 650 mg Q6H PRN PO PAIN LEVEL 1-3 OR FEVER Last administered on 04/03/16 22:54; Admin Dose 650 MG; Start 04/01/16 at 15:30 Acetaminophen (Tylenol Supp) 650 mg Q6H PRN [place] PAIN LEVEL 1-3 OR FEVER; Start 04/01/16 at 15:30 Morphine Sulfate (morphine) 1 mg Q4H PRN IV SEVERE PAIN LEVEL 7-10 Last administered on 04/06/16 12:08; Admin Dose 1 MG; Start 04/01/16 at 15:30 Docusate Sodium (Colace) 100 mg Q12H PRN PO CONSTIPATION; Start 04/01/16 at 15: 30 Bisacodyl (Dulcolax Supp) 10 mg DAILY PRN [place] CONSTIPATION; Start 04/01/16 at 15: 30 Zolpidem Tartrate 5 mg 5 mg QHS PRN PO SLEEP Last administered on 04/05/16 21: 22; Admin Dose 5 MG; Start 04/01/16 at 15:30 Ciprofloxacin/ Dextrose (Cipro Ivpb) 200 ml @ 200 mls/hr Q12H IVPB Last administered on 04/06/16 04:04; Admin Dose 200 MLS/HR; Start 04/01/16 at 16:00 Lorazepam (Ativan) 1 mg Q8H PRN PO ANXIETY; Start 04/01/16 at 16:17 Pantoprazole (Protonix Iv) 40 mg BID IV Last administered on 04/06/16 09:28; Admin Dose 40 MG; Start 04/02/16 at 21:00 Metoclopramide HCl 10 mg 10 mg Q6 IV Last administered on 04/06/16 12:08; Admin Dose 10 MG; Start 04/02/16 at 18:00 Metronidazole (Flagyl 500 Mg (Pmx)) 100 ml @ 100 mls/hr Q8 IVPB Last administered on 04/06/16 05:34; Admin Dose 100 MLS/HR; Start 04/04/16 at 18:00 Folic Acid (Folic Acid) 1 mg DAILY PO Last administered on 04/06/16 09:28; Admin Dose 1 MG; Start 04/05/16 at 14:00 Thiamine HCl (Vitamin B1) 100 mg DAILY PO Last administered on 04/06/16 09:28; Admin Dose 100 MG; Start 04/06/16 at 09:00 Multivitamins Therapeutic (Theragran) 1 tab DAILY PO Last administered on 09:28; Admin Dose 1 TAB; Start 04/06/16 at 09:00 Carbamazepine (Tegretol) 200 mg BID PO Last administered on 04/06/16 09:29; Admin Dose 200 MG; Start 04/05/16 at 21:00 AMA DUNN MD Apr 06, 2016 13:53
[2016-04-06] MEDS ORDERED: POTASSIUM CHLORIDE (SR) 20 MEQ TAB PO STA (16:46)
[2016-04-06] MEDS: ACETAMINOPHEN 325 MG TAB PO PRN (18:09)
[2016-04-06 20:00] VITALS: BP 100/62; PULSE 82; RESP 18
[2016-04-06 20:15] VITALS: BP 110/62; RESP 18
[2016-04-06] MEDS: ZOLPIDEM 5 MG TAB PO PRN (21:31)
[2016-04-07] MEDS: morphine 2 MG INJ IV PRN ×6 (01:51→23:59)
[2016-04-07] MEDS: CIPROFLOXACIN 400MG/D5W 200 ML IVPB SCH ×2 (03:30→15:22)
[2016-04-07 05:34] LABS: ALBUMIN 2.2 g/dl (3.3-4.9)
[2016-04-07 05:35] LABS: POTASSIUM 4.1 mmol/L (3.5-5.1)
[2016-04-07 05:37] LABS: ALBUMIN/GLOBULIN RATIO 0.88; BILIRUBIN,INDIRECT 0.3 mg/dl (0-1.1); BILIRUBIN,TOTAL 0.3 mg/dl (0.2-1.3); CREATININE 0.41 mg/dl (0.44-1.00); TOTAL PROTEIN 4.7 g/dl (6.1-8.1)
[2016-04-07 05:38] LABS: CALCIUM 7.2 mg/dl (8.4-10.2)
[2016-04-07] MEDS: METOCLOPRAMIDE 10 MG INJ IV SCH ×4 (05:39→23:03)
[2016-04-07] MEDS: metroNIDAZOLE 500 MG/NS (PMX) 100 ML IVPB SCH ×3 (05:39→21:26)
[2016-04-07 05:49] LABS: BASOPHIL # 0.1 10^3/ul (0.0-0.1); BASOPHILS % 2.1 % (0.0-2.0); EOSINOPHILS # 0.1 10^3/ul (0.0-0.5); EOSINOPHILS % 1.4 % (0.0-7.0); HEMATOCRIT 25.4 % (37.0-47.0); HEMOGLOBIN 8.7 g/dl (12.0-16.0); LYMPHOCYTES # 1.1 10^3/ul (0.8-2.9); LYMPHOCYTES % 28.2 % (15.0-51.0); MEAN CORPUSCULAR HEMOGLOBIN 36.1 pg (29.0-33.0); MEAN CORPUSCULAR HGB CONC 34.4 g/dl (32.0-37.0); MEAN PLATELET VOLUME 8.1 fl (7.4-10.4); MONOCYTE # 0.6 10^3/ul (0.3-0.9); MONOCYTES % 14.4 % (0.0-11.0); NEUTROPHIL # 2.2 10^3/ul (1.6-7.5); NEUTROPHILS % 53.9 % (39.0-77.0); NUCLEATED RED BLOOD CELLS% 2.5 /100WBC (0.0-0.0); PLATELET COUNT 91 10^3/UL (140-440); RED BLOOD COUNT 2.41 10^6/ul (4.20-5.40); RED CELL DISTRIBUTION WIDTH 22.1 % (11.5-14.5)
[2016-04-07 05:53] LABS: CONDITION 1; LH ANALYZER COMMENTS 1; NUCLEATED RED BLOOD CELLS # 0.1 10^3/ul (0.0-0.0); SUSPECT 1
[2016-04-07 06:23] LABS: MAGNESIUM 0.9 mg/dl (1.7-2.5)
[2016-04-07] MEDS ORDERED: MAGNESIUM SULFATE 4 GM/100 ML 100 ML IVPB ONE (07:30)
[2016-04-07 08:16] VITALS: BP 114/71; RESP 16
[2016-04-07] MEDS: D5W-0.45 NACL + KCL 20 MEQ 1,000 ML IV SCH ×2 (08:36→13:11)
[2016-04-07] MEDS: PANTOPRAZOLE 40 MG INJ IV SCH ×2 (09:09→21:25)
[2016-04-07] MEDS: CARBAMAZEPINE 200 MG TAB PO SCH ×2 (09:10→21:26)
[2016-04-07] MEDS: FOLIC ACID 1 MG TAB PO SCH (09:10)
[2016-04-07] MEDS: THIAMINE 100 MG TAB PO SCH (09:13)
[2016-04-07] MEDS: MULTIVITAMINS THERAPEUTIC TAB PO SCH (09:13)
[2016-04-07] MEDS: ACETAMINOPHEN 325 MG TAB PO PRN ×2 (09:20→16:16)
--- NOTE | 2016-04-07 13:51 | CONS ---
Date/Time of Note Date/Time of Note DATE: 04/07/16 TIME: 13:49 Assessment/Plan Assessment/Plan Additional Assessment/Plan Abdominal pain/Nausea and vomiting/improved * EGD 04-02-16: 1. Small 5 mm clean based antral gastric ulceration. Biopsies were obtained. Pancreatitis/resolved * Likely secondary to EtOH abuse Anemia Transaminitis Elevated ferritin and iron saturation Rule out hemochromatosis Hypokalemia. History of seizure disorder. Further recommendations pending clinical course Plan: Repeat ferritin and iron saturation Advance Consultation Date/Type/Reason Admit Date/Time Apr 01, 2016 at 14:01 Type of Consultation: Gastroenterology 24 HR Interval Summary Free Text/Dictation Ilia diet Will advance Pathology neg for H pylori Exam/Review of Systems Vital Signs Vitals Vital Signs Date Time Temp Pulse Resp B/P Pulse Ox O2 Delivery O2 Flow Rate FiO2 04/07/16 08:16 98.5 93 16 114/71 97 04/06/16 20:00 Room Air Intake and Output 04/06/16 04/06/16 04/07/16 15:00 23:00 07:00 Intake Total 240 ml 1940 ml 1700 ml Output Total 1000 ml 950 ml Balance 240 ml 940 ml 750 ml Exam Constitutional: alert, oriented, well developed Head: atraumatic, normocephalic Eyes: EOMI, PERRL, nl conjunctiva, nl lids, nl sclera ENMT: nl external ears & nose, nl lips & teeth, nl nasal mucosa & septum Neck: non-tender, supple Respiratory: clear to auscultation, normal air movement Cardiovascular: nl pulses, regular rate and rhythm Gastrointestinal: nl liver, spleen, non-tender, soft Musculoskeletal: nl extremities to inspection Skin: nl turgor, No rash or lesions Results Result Diagram: 04/07/16 0433 04/07/16 0433 Results 24 hrs Laboratory Tests Test 04/07/16 04:33 Alanine Aminotransferase (ALT/SGPT) 34 Albumin 2.2 L Albumin/Globulin Ratio 0.88 Alkaline Phosphatase 90 Anion Gap 15 Aspartate Amino Transf (AST/SGOT) 58 H Basophils # 0.1 Basophils % 2.1 H Blood Morphology Comment Blood Urea Nitrogen 2 L Calcium Level 7.2 L Carbon Dioxide Level 21 Chloride Level 103 Creatinine 0.41 L Direct Bilirubin 0.00 Eosinophils # 0.1 Eosinophils % 1.4 Globulin 2.50 Glucose Level 100 Hematocrit 25.4 L Hemoglobin 8.7 L Indirect Bilirubin 0.3 Lymphocytes # 1.1 Lymphocytes % 28.2 Magnesium Level 0.9 *L Mean Corpuscular Hemoglobin 36.1 H Mean Corpuscular Hemoglobin Concent 34.4 Mean Corpuscular Volume 105.0 H Mean Platelet Volume 8.1 Monocytes # 0.6 Monocytes % 14.4 H Neutrophils # 2.2 Neutrophils % 53.9 Nucleated Red Blood Cells # 0.1 H Nucleated Red Blood Cells % 2.5 H Phosphorus Level 2.8 Platelet Count 91 L Potassium Level 4.1 Red Blood Count 2.41 L Red Cell Distribution Width 22.1 H Sodium Level 135 Total Bilirubin 0.3 Total Protein 4.7 L White Blood Count 4.0 L Medications Medications Current Medications Potassium Chloride/Dextrose/ Sod Cl (D5-1/2ns + KCl 20 Meq) 1,000 ml @ 80 mls/ hr [id number] IV Last administered on 04/07/16 13:11; Admin Dose 80 MLS/HR; Start 04/01/16 at 15:06 Ondansetron HCl (Zofran Inj) 4 mg Q6H PRN IV NAUSEA AND/OR VOMITING Last administered on 04/03/16 08:37; Admin Dose 4 MG; Start 04/01/16 at 15:30 Acetaminophen (Tylenol Tab) 650 mg Q6H PRN PO PAIN LEVEL 1-3 OR FEVER Last administered on 04/07/16 09:20; Admin Dose 650 MG; Start 04/01/16 at 15:30 Acetaminophen (Tylenol Supp) 650 mg Q6H PRN [place] PAIN LEVEL 1-3 OR FEVER; Start 04/01/16 at 15:30 Morphine Sulfate (morphine) 1 mg Q4H PRN IV SEVERE PAIN LEVEL 7-10 Last administered on 04/07/16 10:32; Admin Dose 1 MG; Start 04/01/16 at 15:30 Docusate Sodium (Colace) 100 mg Q12H PRN PO CONSTIPATION; Start 04/01/16 at 15: 30 Bisacodyl (Dulcolax Supp) 10 mg DAILY PRN [place] CONSTIPATION; Start 04/01/16 at 15: 30 Zolpidem Tartrate 5 mg 5 mg QHS PRN PO SLEEP Last administered on 04/06/16 21: 31; Admin Dose 5 MG; Start 04/01/16 at 15:30 Ciprofloxacin/ Dextrose (Cipro Ivpb) 200 ml @ 200 mls/hr Q12H IVPB Last administered on 04/07/16 03:30; Admin Dose 200 MLS/HR; Start 04/01/16 at 16:00 Lorazepam (Ativan) 1 mg Q8H PRN PO ANXIETY; Start 04/01/16 at 16:17 Pantoprazole (Protonix Iv) 40 mg BID IV Last administered on 04/07/16 09:09; Admin Dose 40 MG; Start 04/02/16 at 21:00 Metoclopramide HCl 10 mg 10 mg Q6 IV Last administered on 04/07/16 12:20; Admin Dose 10 MG; Start 04/02/16 at 18:00 Metronidazole (Flagyl 500 Mg (Pmx)) 100 ml @ 100 mls/hr Q8 IVPB Last administered on 04/07/16 13:10; Admin Dose 100 MLS/HR; Start 04/04/16 at 18:00 Folic Acid (Folic Acid) 1 mg DAILY PO Last administered on 04/07/16 09:10; Admin Dose 1 MG; Start 04/05/16 at 14:00 Thiamine HCl (Vitamin B1) 100 mg DAILY PO Last administered on 04/07/16 09:13; Admin Dose 100 MG; Start 04/06/16 at 09:00 Multivitamins Therapeutic (Theragran) 1 tab DAILY PO Last administered on 09:13; Admin Dose 1 TAB; Start 04/06/16 at 09:00 Carbamazepine (Tegretol) 200 mg BID PO Last administered on 04/07/16 09:10; Admin Dose 200 MG; Start 04/05/16 at 21:00 JOEY MANN Apr 07, 2016 13:51
--- NOTE | 2016-04-07 14:13 | PDOCDIS ---
Discharge Instructions CONDITION Patient Condition: Stable HOME CARE INSTRUCTIONS: Diet Instructions: Low Fat /Cholesterol ACTIVITY: Activity Restrictions: Special Exercises Activity Restrictions Comment: with retail event and sales assistant and risk of fall FOLLOW UP/APPOINTMENTS Appointments Follow up with GI as out-pt AMA DUNN MD Apr 07, 2016 14:13
[2016-04-07] MEDS ORDERED: ACET325T33 PO (14:15)
[2016-04-07] MEDS ORDERED: MULTI PO (14:15)
[2016-04-07] MEDS ORDERED: DOCU-216 PO (14:15)
[2016-04-07] MEDS ORDERED: Thiamine PO (14:15)
[2016-04-07] MEDS ORDERED: FOLI-49 PO (14:15)
[2016-04-07] MEDS: MAGNESIUM OXIDE 400 MG TAB PO SCH (15:22)
--- NOTE | 2016-04-07 16:51 | DS ---
DATE OF ADMISSION: 04/01/2016 DATE OF DISCHARGE: 04/07/2016 CONSULTANTS: Shampoo Person, Dr. Stanford. PROCEDURE: Esophagogastroduodenoscopy with biopsy with the small 5 mm clean based antral gastric ulc erations. Biopsies were obtained. DISCHARGE DIAGNOSES: 1. Abdominal pain with associated nausea, vomiting secondary to alcoholic pancreatitis, improved. Gastroenterology was consulted. Patient has been placed on proton pump inhibitor. 2. Acalculous cholecystitis, negative HIDA scan. 3. Seizure disorder. Continue anti-seizure medication. 4. Small gastric ulcer. Continue proton pump inhibitor. 5. We will monitor macrocytic anemia secondary to alcoholism. 6. Status post transfusion of packed red blood cell, 04/02/2016. The patient will continue folic a terrie, multivitamin and thiamine. 7. Hypernatremia, resolved. 8. Alcohol abuse. Education was provided. No sign of delirium tremens or withdrawal. Alcohol sergei sation consult, counseling done. We will continue to reinforce throughout hospitalization. Continu e folic acid, thiamine and multivitamin. 9. Hypomagnesemia, repleted. 10. Debility. Physical therapy and occupational therapy evaluate and treat. MEDICATIONS: 1. Tylenol. 2. Dulcolax suppository. 3. Tegretol 200 mg b.i.d. 4. Colace 100 mg. 5. Folic acid 1 mg. 6. Ativan 1 mg p.r.n. 5. Multivitamin. 6. Thiamine 100 mg. 7. Magnesium oxide 400 mg 8. Ciprofloxacin 500 mg b.i.d. x5 days. 9. Reglan 5 mg p.o. t.i.d. 10. Flagyl 500 mg 1 tab p.o. t.i.d. for five days. 11. Zofran 4 mg. 12. Protonix 40 mg 1 tab p.o. b.i.d. x30 days and then 1 tab p.o. daily. DIET: Low fat, low cholesterol. ACTIVITY: With public aid eligibility assistant and risk of fall. ALLERGIES: NO KNOWN DRUG ALLERGIES. HOSPITAL COURSE: This is a very pleasant 60-year-old female with past medical history of seizure d isorder who has been complaining of having abdominal discomfort, nausea, vomiting, having difficulty with decreased p.o. intake with nausea and abdominal pain. She has been complaining of having field technical specialist rodrigo back pain and has history of hysterectomy. She reported nausea, vomiting x2 weeks of emesis, no nbloody, complaining of generalized abdominal weakness. No diarrhea, no bowel movement without any fever or chills. Positive for anorexia secondary nausea, vomiting, blood glucose was found to be 10 4. Sodium 131, potassium 2.8, bicarbonate 16, glucose 104, calcium 8.4. Lipase was 164, magnesium 1.3. Patient was treated with 10 mg of potassium chloride and [address] abdomen an d pelvis was obtained which was unremarkable. The patient was started on IV fluids and ciprofloxaci n. Patient was found to have history of alcoholism at the time of admission. The patient stated th at she has discontinued drinking. Although after her admission, the patient stated that she has con tinued to consume alcohol. She was placed on folic acid, multivitamin and thiamine, IV fluids. Gas troenterologist was consulted. The patient was taken to GI lab for upper endoscopy, which showed a small 5 mm clean based antral gastric ulceration. The patient was continued on IV PPI and patient's LFTs started to improve significantly. Her magnesium has been repleted with IV magnesium sulfate. Her LFTs have been improving. The patient has been having difficulty with ambulation and secondary to her condition and her continuous nausea and vomiting, which has been going on for the past sever al weeks. The patient has been seen and evaluated by physical therapy and has been having difficult y with ambulation. Therefore, at this time, the patient is being set up by case sealer to be trans ferred to senior care facility for physical therapy. The patient will be discharge from senior care facility. There have been several talks with the patient regarding her drinking habits. A t this time, patient is medically stable to be transferred to senior care facility with close fo llowup with her primary care physician and carton liner in 3 to 4 months. Total amount of time was spent for this patient and discharge workup 45 minutes. Dictated By: AMA FLORES/CALLI Conf#: [id number] DID#: [id number]
[2016-04-07 20:01] VITALS: BP 102/63; RESP 19
[2016-04-07] MEDS: ZOLPIDEM 5 MG TAB PO PRN (21:27)
[2016-04-08] MEDS: ACETAMINOPHEN 325 MG TAB PO PRN ×3 (02:51→20:19)
[2016-04-08] MEDS: CIPROFLOXACIN 400MG/D5W 200 ML IVPB SCH ×2 (03:33→16:23)
[2016-04-08] MEDS: D5W-0.45 NACL + KCL 20 MEQ 1,000 ML IV SCH ×2 (03:37→20:19)
[2016-04-08] MEDS: morphine 2 MG INJ IV PRN ×5 (03:57→20:28)
[2016-04-08] MEDS: metroNIDAZOLE 500 MG/NS (PMX) 100 ML IVPB SCH ×3 (05:06→22:26)
[2016-04-08] MEDS: METOCLOPRAMIDE 10 MG INJ IV SCH ×3 (05:06→17:23)
[2016-04-08 06:09] LABS: HEMOGLOBIN 8.6 g/dl (12.0-16.0); MEAN CORPUSCULAR HEMOGLOBIN 35.9 pg (29.0-33.0); MEAN CORPUSCULAR HGB CONC 34.2 g/dl (32.0-37.0); MEAN CORPUSCULAR VOLUME 104.8 fl (82.0-101.0); MEAN PLATELET VOLUME 7.5 fl (7.4-10.4); PLATELET COUNT 104 10^3/UL (140-440); RED BLOOD COUNT 2.38 10^6/ul (4.20-5.40); RED CELL DISTRIBUTION WIDTH 21.6 % (11.5-14.5); UNCORRECTED WBC 4.6 10^3/ul (4.8-10.8); WHITE BLOOD COUNT 4.6 10^3/ul (4.8-10.8)
[2016-04-08 07:09] LABS: ALBUMIN 2.1 g/dl (3.3-4.9)
[2016-04-08 07:10] LABS: CHLORIDE 102 mmol/L (97-110); CONDITION 1; LH ANALYZER COMMENTS 1; POTASSIUM 3.6 mmol/L (3.5-5.1); SODIUM 133 mmol/L (135-144); SUSPECT 1
[2016-04-08 07:12] LABS: ALBUMIN/GLOBULIN RATIO 0.84; ANION GAP 13 (8-16); ASPARTATE AMINO TRANSFERASE 43 IU/L (15-46); CARBON DIOXIDE 22 mmol/L (21-31); TOTAL PROTEIN 4.6 g/dl (6.1-8.1)
[2016-04-08 07:13] LABS: ALANINE AMINOTRANSFERASE 35 IU/L (13-69); ALKALINE PHOSPHATASE 117 IU/L (42-121); CALCIUM 7.7 mg/dl (8.4-10.2); GLUCOSE 85 mg/dl (70-220)
[2016-04-08 07:14] LABS: BLOOD UREA NITROGEN < 2 mg/dl (7-20)
[2016-04-08 07:33] VITALS: BP 90/56; RESP 18
[2016-04-08] MEDS: MULTIVITAMINS THERAPEUTIC TAB PO SCH (08:37)
[2016-04-08] MEDS: MAGNESIUM OXIDE 400 MG TAB PO SCH (08:37)
[2016-04-08] MEDS: FOLIC ACID 1 MG TAB PO SCH (08:38)
[2016-04-08] MEDS: PANTOPRAZOLE 40 MG INJ IV SCH ×2 (08:38→20:09)
[2016-04-08] MEDS: THIAMINE 100 MG TAB PO SCH (08:38)
[2016-04-08] MEDS: CARBAMAZEPINE 200 MG TAB PO SCH ×2 (08:38→20:10)
[2016-04-08 09:54] LABS: BASOPHIL # 0.1 10^3/ul (0.0-0.1); LYMPHOCYTES # 1.5 10^3/ul (0.8-2.9); MONOCYTE # 0.8 10^3/ul (0.3-0.9); NEUTROPHIL # 2.2 10^3/ul (1.6-7.5)
[2016-04-08] MEDS ORDERED: morphine 2 MG INJ IV ONE (10:00)
--- NOTE | 2016-04-08 13:36 | DS ---
Date/Time of Note Date/Time of Note DATE: 04/08/16 TIME: 13:30 Discharge Summary Admission/Discharge Info Admit Date/Time Apr 01, 2016 at 14:01 Discharge Date/Time 04/08/16 Final Diagnosis DISCHARGE DIAGNOSES: 1. Abdominal pain with associated nausea, vomiting secondary to alcoholic pancreatitis, improved. Gastroenterology was consulted. Patient has been placed on proton pump inhibitor. 2. Acalculous cholecystitis, negative HIDA scan. 3. Seizure disorder. Continue anti-seizure medication. 4. Small gastric ulcer. Continue proton pump inhibitor. 5. We will monitor macrocytic anemia secondary to alcoholism. 6. Status post transfusion of packed red blood cell, 04/02/2016. The patient will continue folic acid, multivitamin and thiamine. 7. Hypernatremia, resolved. 8. Alcohol abuse. Education was provided. No sign of delirium tremens or withdrawal. Alcohol cessation consult, counseling done. We will continue to reinforce throughout hospitalization. Continue folic acid, thiamine and multivitamin. 9. Hypomagnesemia, repleted. 10. Debility. Physical therapy and occupational therapy evaluate and treat. Patient Condition: Stable Consults 1 battery installer Hospital Course HOSPITAL COURSE: This is a very pleasant 60-year-old female with past medical history of seizure disorder who has been complaining of having abdominal discomfort, nausea, vomiting, having difficulty with decreased p.o. intake with nausea and abdominal pain. She has been complaining of having chronic back pain and has history of hysterectomy. She reported nausea, vomiting x2 weeks of emesis, nonbloody, complaining of generalized abdominal weakness. No diarrhea, no bowel movement without any fever or chills. Positive for anorexia secondary nausea, vomiting, blood glucose was found to be 104. Sodium 131, potassium 2.8, bicarbonate 16, glucose 104, calcium 8.4. Lipase was 164, magnesium 1.3. Patient was treated with 10 mg of potassium chloride and [address] abdomen and pelvis was obtained which was unremarkable. The patient was started on IV fluids and ciprofloxacin. Patient was found to have history of alcoholism at the time of admission. The patient stated that she has discontinued drinking. Although after her admission, the patient stated that she has continued to consume alcohol. She was placed on folic acid , multivitamin and thiamine, IV fluids. Leather Sponger was consulted. The patient was taken to GI lab for upper endoscopy, which showed a small 5 mm clean based antral gastric ulceration. The patient was continued on IV PPI and patient's LFTs started to improve significantly. Her magnesium has been repleted with IV magnesium sulfate. Her LFTs have been improving. The patient has been having difficulty with ambulation and secondary to her condition and her continuous nausea and vomiting, which has been going on for the past several weeks. The patient has been seen and evaluated by physical therapy and has been having difficulty with ambulation. Therefore, at this time, the patient is being set up by shoe parts caser to be transferred to residential facility for physical therapy. The patient will be discharge from residential facility. There have been several talks with the patient regarding her drinking habits. At this time, patient is medically stable to be transferred to residential facility with close followup with her primary care physician and battery installer in 3 to 4 months. Patient was planned to be discharge to residential facility on 04/07/2016 although unfortunately no bed was available. No acute events since yesterday patient has been able to tolerate oral intake without any difficulties she is still max assist with ambulation and she is said to be discharged to residential facility today with a close follow up with her primary care physician as outpatient when she is discharged from residential facility. Home Meds Active Scripts Multivitamins* (Theragran*) 1 Tab Tab, 1 TAB PO DAILY for 1 Day, TAB Prov:AMA DUNN MD 04/07/16 [Thiamine] 100 MG TAB No Conflict Check, 100 MG PO DAILY for 1 Day Prov:AMA DUNN MD 04/07/16 Folic Acid* (Folic Acid*) 1 Mg Tablet, 1 MG PO DAILY for 1 Day, TAB Prov:AMA DUNN MD 04/07/16 Docusate Sodium (Dok) 100 Mg Capsule, 100 MG PO Q12H Y for CONSTIPATION for 1 Day, CAP Prov:AMA DUNN MD 04/07/16 Acetaminophen* (Tylenol*) 325 Mg Tablet, 650 MG PO Q6H Y for PAIN LEVEL 1-3 OR FEVER for 1 Day, TAB Prov:AMA DUNN MD 04/07/16 Reported Medications Carbamazepine* (Carbamazepine*) 100 Mg Tab.chew, 200 MG PO BID, TAB.CHEW 08/07/14 Discontinued Scripts Hydrocodone Bit-Acetaminophen* ([place]*) 5-325 Mg Tab, 1 TAB PO Q6 Y for PAIN, # 10 TAB Prov:DELORES CARROLL M. 10/01/14 Ibuprofen* (Motrin*) 600 Mg Tab, 600 MG PO Q6H Y for PAIN AND OR ELEVATED TEMP, #30 Prov:DELORES CARROLL M. 10/01/14 Pending Labs Laboratory Tests Test 04/08/16 05:20 Alanine Aminotransferase (ALT/SGPT) 35IU/L (13-69) Albumin 2.1g/dl (3.3-4.9) Albumin/Globulin Ratio 0.84 Alkaline Phosphatase 117IU/L (42-121) Anion Gap 13 (8-16) Aspartate Amino Transf (AST/SGOT) 43IU/L (15-46) Basophils # 0.110^3/ul (0.0-0.1) Basophils % 2.0% (0.0-2.0) Blood Morphology Comment Blood Urea Nitrogen < 2mg/dl (7-20) Calcium Level 7.7mg/dl (8.4-10.2) Carbon Dioxide Level 22mmol/L (21-31) Chloride Level 102mmol/L (97-110) Creatinine 0.40mg/dl (0.44-1.00) Differential Comment MANUAL DIFF Direct Bilirubin 0.00mg/dl (0.00-0.20) Eosinophils # 0.010^3/ul (0.0-0.5) Eosinophils % 1.0% (0.0-7.0) Globulin 2.50g/dl (1.3-3.2) Glucose Level 85mg/dl (70-220) Hematocrit 25.0% (37.0-47.0) Hemoglobin 8.6g/dl (12.0-16.0) Indirect Bilirubin 0.0mg/dl (0-1.1) Lymphocytes # 1.510^3/ul (0.8-2.9) Lymphocytes % 32.0% (15.0-51.0) Mean Corpuscular Hemoglobin 35.9pg (29.0-33.0) Mean Corpuscular Hemoglobin Concent 34.2g/dl (32.0-37.0) Mean Corpuscular Volume 104.8fl (82.0-101.0) Mean Platelet Volume 7.5fl (7.4-10.4) Monocytes # 0.810^3/ul (0.3-0.9) Monocytes % 17.0% (0.0-11.0) Neutrophils # 2.210^3/ul (1.6-7.5) Neutrophils % 48.0% (39.0-77.0) Nucleated Red Blood Cells # 10^3/ul (0.0-0.0) Nucleated Red Blood Cells % /100WBC (0.0-0.0) Platelet Count 73062^3/UL (140-440) Potassium Level 3.6mmol/L (3.5-5.1) Red Blood Count 2.3810^6/ul (4.20-5.40) Red Cell Distribution Width 21.6% (11.5-14.5) Sodium Level 133mmol/L (135-144) Total Bilirubin 0.0mg/dl (0.2-1.3) Total Protein 4.6g/dl (6.1-8.1) White Blood Count 4.610^3/ul (4.8-10.8) AMA DUNN MD Apr 08, 2016 13:36
[2016-04-08 20:10] VITALS: BP 119/68; RESP 16
[2016-04-08] MEDS: ZOLPIDEM 5 MG TAB PO PRN (22:25)
[2016-04-09] MEDS: morphine 2 MG INJ IV PRN ×6 (00:38→21:49)
[2016-04-09] MEDS: METOCLOPRAMIDE 10 MG INJ IV SCH ×4 (00:38→17:48)
[2016-04-09] MEDS: CIPROFLOXACIN 400MG/D5W 200 ML IVPB SCH ×2 (05:14→17:48)
[2016-04-09] MEDS: ACETAMINOPHEN 325 MG TAB PO PRN (05:20)
[2016-04-09] MEDS: metroNIDAZOLE 500 MG/NS (PMX) 100 ML IVPB SCH ×3 (06:25→21:47)
[2016-04-09 08:30] VITALS: BP 110/70; RESP 18
[2016-04-09] MEDS: CARBAMAZEPINE 200 MG TAB PO SCH ×2 (08:40→21:46)
[2016-04-09] MEDS: MAGNESIUM OXIDE 400 MG TAB PO SCH (08:40)
[2016-04-09] MEDS: THIAMINE 100 MG TAB PO SCH (08:40)
[2016-04-09] MEDS: MULTIVITAMINS THERAPEUTIC TAB PO SCH (08:40)
[2016-04-09] MEDS: FOLIC ACID 1 MG TAB PO SCH (08:40)
[2016-04-09] MEDS: PANTOPRAZOLE 40 MG INJ IV SCH ×2 (08:41→21:44)
[2016-04-09] MEDS: D5W-0.45 NACL + KCL 20 MEQ 1,000 ML IV SCH ×2 (12:34→23:06)
--- NOTE | 2016-04-09 15:04 | PN ---
Date/Time of Note Date/Time of Note DATE: 04/09/16 TIME: 15:01 Assessment/Plan VTE Prophylaxis VTE Prophylaxis Intervention: SCD's Lines/Catheters [facility] Peripheral IV Urinary Cath still in place: No Assessment/Plan Chief Complaint/Hosp Course Assessment/Plan 1. Abdominal pain with associated nausea and vomiting 2/2 Alcoholic Pancreatitis: improving Help Desk Assistant has been consulted, clear for discharge as per GI standpoint Appreciate GI input / Continue proton pump inhibitors / f/u biopsies / Will need outpt Colonoscopy 2. acalculous cholecystitis Negative HIDA scan 3. Seizure disorder. Continue anti-seizure medications. 4. Small Gastric ulcer * Seen on EGD 04/02/16, continue PPI 5. Moderate Macrocytic anemia 2/2 alcoholism s/p transfusion 04/02/16 Continue to monitor, will transfuse if hemoglobin is less than 7.5 6. Transaminitis likely 2/2 hepatomegaly from fatty liver and chronic alcohol abuse Continue to monitor 7. Hypernatremia. Improving status post IV fluids Alcohol abuse Education was provided, no sign of delirium tremens or withdrawal, patient placed on folic acid, multivitamin and thiamine Alcohol cessation counselling done and will continue to be reinforced throughout hospitalization. Resources to help with cessation per Social work Hypophosphatemia Likely secondary to alcohol abuse Hypomagnesemia Likely secondary to alcohol abuse, repleted Debility PT OT eval and treat Continue seizure precautions / pain control/ antiemetics/ supportive care Continue monitor patient closely for recommendation management treatment as clinical course stallion manager consult for placement status post physical therapy evaluation Problems: Subjective 24 Hr Interval Summary Free Text/Dictation Patient has refused physical therapy treatment secondary of having pain and weakness in her lower extremities Tolerating oral intake Exam/Review of Systems Vital Signs Vitals Vital Signs Date Time Temp Pulse Resp B/P Pulse Ox O2 Delivery O2 Flow Rate FiO2 04/09/16 08:30 98.0 81 18 110/70 97 04/06/16 20:00 Room Air Intake and Output 04/08/16 04/08/16 04/09/16 14:59 22:59 06:59 Intake Total 100 ml 2180 ml 1310 ml Output Total 620 ml Balance 100 ml 2180 ml 690 ml Exam General: The patient is well-developed, Not in acute distress. HEENT: Atraumatic, normocephalic. The pupils are equal and round . Neck: Supple with full range of motion. Chest: Normal expansion of the thorax during inspiration Lungs: Clear to auscultation bilaterally Heart: Normal S1-S2, Regular rhythm and rate. Abdomen: Soft , nontender, nondistended , bowel sounds are present. Extremities: Normal to inspection, nonpitting edema no cyanosis Neurologic: Normal mental status,The patient is awake, alert and oriented . Results Result Diagram: 04/08/1651904/08/16519 Medications Medications Current Medications Potassium Chloride/Dextrose/ Sod Cl (D5-1/2ns + KCl 20 Meq) 1,000 ml @ 80 mls/ hr [id number] IV Last administered on 04/09/16 12:34; Admin Dose 80 MLS/HR; Start 04/01/16 at 15:06 Ondansetron HCl (Zofran Inj) 4 mg Q6H PRN IV NAUSEA AND/OR VOMITING Last administered on 04/03/16 08:37; Admin Dose 4 MG; Start 04/01/16 at 15:30 Acetaminophen (Tylenol Tab) 650 mg Q6H PRN PO PAIN LEVEL 1-3 OR FEVER Last administered on 04/09/16 05:20; Admin Dose 650 MG; Start 04/01/16 at 15:30 Acetaminophen (Tylenol Supp) 650 mg Q6H PRN [place] PAIN LEVEL 1-3 OR FEVER; Start 04/01/16 at 15:30 Morphine Sulfate (morphine) 1 mg Q4H PRN IV SEVERE PAIN LEVEL 7-10 Last administered on 04/09/16 13:22; Admin Dose 1 MG; Start 04/01/16 at 15:30 Docusate Sodium (Colace) 100 mg Q12H PRN PO CONSTIPATION; Start 04/01/16 at 15: 30 Bisacodyl (Dulcolax Supp) 10 mg DAILY PRN [place] CONSTIPATION; Start 04/01/16 at 15: 30 Zolpidem Tartrate 5 mg 5 mg QHS PRN PO SLEEP Last administered on 04/08/16 22: 25; Admin Dose 5 MG; Start 04/01/16 at 15:30 Ciprofloxacin/ Dextrose (Cipro Ivpb) 200 ml @ 200 mls/hr Q12H IVPB Last administered on 04/09/16 05:14; Admin Dose 200 MLS/HR; Start 04/01/16 at 16:00 Lorazepam (Ativan) 1 mg Q8H PRN PO ANXIETY; Start 04/01/16 at 16:17 Pantoprazole (Protonix Iv) 40 mg BID IV Last administered on 04/09/16 08:41; Admin Dose 40 MG; Start 04/02/16 at 21:00 Metoclopramide HCl 10 mg 10 mg Q6 IV Last administered on 04/09/16 12:35; Admin Dose 10 MG; Start 04/02/16 at 18:00 Metronidazole (Flagyl 500 Mg (Pmx)) 100 ml @ 100 mls/hr Q8 IVPB Last administered on 04/09/16 13:23; Admin Dose 100 MLS/HR; Start 04/04/16 at 18:00 Folic Acid (Folic Acid) 1 mg DAILY PO Last administered on 04/09/16 08:40; Admin Dose 1 MG; Start 04/05/16 at 14:00 Thiamine HCl (Vitamin B1) 100 mg DAILY PO Last administered on 04/09/16 08:40 ; Admin Dose 100 MG; Start 04/06/16 at 09:00 Multivitamins Therapeutic (Theragran) 1 tab DAILY PO Last administered on 08:40; Admin Dose 1 TAB; Start 04/06/16 at 09:00 Carbamazepine (Tegretol) 200 mg BID PO Last administered on 04/09/16 08:40; Admin Dose 200 MG; Start 04/05/16 at 21:00 Magnesium Oxide (Mag-Ox 400) 400 mg DAILY PO Last administered on 04/09/16 08: 40; Admin Dose 400 MG; Start 04/07/16 at 16:00 AMA DUNN MD Apr 09, 2016 15:04
[2016-04-09 20:25] VITALS: BP 107/66; RESP 20
[2016-04-10] MEDS: METOCLOPRAMIDE 10 MG INJ IV SCH ×4 (00:18→18:16)
[2016-04-10] MEDS: morphine 2 MG INJ IV PRN ×5 (02:20→23:50)
[2016-04-10] MEDS: CIPROFLOXACIN 400MG/D5W 200 ML IVPB SCH ×2 (03:55→15:40)
[2016-04-10] MEDS: D5W-0.45 NACL + KCL 20 MEQ 1,000 ML IV SCH (03:56)
[2016-04-10 05:05] LABS: ADD SCAN DIFF NO
[2016-04-10 05:30] LABS: BASOPHILS % 0.5 % (0.0-2.0); EOSINOPHILS # 0.1 10^3/ul (0.0-0.5); EOSINOPHILS % 1.5 % (0.0-7.0); HEMATOCRIT 25.5 % (37.0-47.0); HEMOGLOBIN 8.7 g/dl (12.0-16.0); LYMPHOCYTES % 26.1 % (15.0-51.0); MEAN CORPUSCULAR HEMOGLOBIN 34.7 pg (29.0-33.0); MEAN CORPUSCULAR HGB CONC 34.1 g/dl (32.0-37.0); MEAN CORPUSCULAR VOLUME 101.6 fl (82.0-101.0); MEAN PLATELET VOLUME 10.7 fl (7.4-10.4); MONOCYTE # 0.9 10^3/ul (0.3-0.9); MONOCYTES % 21.8 % (0.0-11.0); NEUTROPHILS % 49.8 % (39.0-77.0); PLATELET COUNT 153 10^3/UL (140-415); RED BLOOD COUNT 2.51 10^6/ul (4.20-5.40); RED CELL DISTRIBUTION WIDTH 18.6 % (11.5-14.5); WHITE BLOOD COUNT 3.9 10^3/ul (4.8-10.8)
[2016-04-10 05:45] LABS: ALBUMIN 2.3 g/dl (3.3-4.9); CHLORIDE 104 mmol/L (97-110); SODIUM 134 mmol/L (135-144)
[2016-04-10 05:46] LABS: POTASSIUM 3.7 mmol/L (3.5-5.1)
[2016-04-10 05:48] LABS: ALANINE AMINOTRANSFERASE 29 IU/L (13-69); ALKALINE PHOSPHATASE 122 IU/L (42-121); ANION GAP 13 (8-16); ASPARTATE AMINO TRANSFERASE 33 IU/L (15-46); CARBON DIOXIDE 21 mmol/L (21-31); GLUCOSE 100 mg/dl (70-220); TOTAL PROTEIN 4.6 g/dl (6.1-8.1)
[2016-04-10 05:49] LABS: CALCIUM 7.8 mg/dl (8.4-10.2)
[2016-04-10 06:14] LABS: BLOOD UREA NITROGEN < 2 mg/dl (7-20)
[2016-04-10] MEDS: metroNIDAZOLE 500 MG/NS (PMX) 100 ML IVPB SCH ×3 (06:17→21:38)
[2016-04-10 07:40] VITALS: BP 131/73; RESP 16
--- NOTE | 2016-04-10 08:59 | PN ---
Date/Time of Note Date/Time of Note DATE: 04/10/16 TIME: 08:58 Assessment/Plan VTE Prophylaxis VTE Prophylaxis Intervention: SCD's Lines/Catheters IV [facility]ter Type (from [facility]): Peripheral IV Urinary Cath still in place: No Assessment/Plan Chief Complaint/Hosp Course Assessment/Plan 1. Abdominal pain with associated nausea and vomiting 2/2 Alcoholic Pancreatitis: improving Audio/Visual Operator has been consulted, clear for discharge as per GI standpoint Appreciate GI input / Continue proton pump inhibitors / f/u biopsies / Will need outpt Colonoscopy 2. acalculous cholecystitis Negative HIDA scan 3. Seizure disorder. Continue anti-seizure medications. 4. Small Gastric ulcer * Seen on EGD 04/02/16, continue PPI 5. Moderate Macrocytic anemia 2/2 alcoholism s/p transfusion 04/02/16 Continue to monitor, will transfuse if hemoglobin is less than 7.5 6. Transaminitis likely 2/2 hepatomegaly from fatty liver and chronic alcohol abuse Continue to monitor 7. Hypernatremia. Improving status post IV fluids Alcohol abuse Education was provided, no sign of delirium tremens or withdrawal, patient placed on folic acid, multivitamin and thiamine Alcohol cessation counselling done and will continue to be reinforced throughout hospitalization. Resources to help with cessation per Social work Hypophosphatemia Likely secondary to alcohol abuse Hypomagnesemia Likely secondary to alcohol abuse, repleted Debility PT OT eval and treat Continue seizure precautions / pain control/ antiemetics/ supportive care Continue monitor patient closely for recommendation management treatment as clinical course reproduction production manager consult for placement Problems: Subjective 24 Hr Interval Summary Free Text/Dictation Patient denies any chest pain or shortness of breath Denies any abdominal pain, constipation or diarrhea Moderate to max assist with ambulation Exam/Review of Systems Vital Signs Vitals Vital Signs Date Time Temp Pulse Resp B/P Pulse Ox O2 Delivery O2 Flow Rate FiO2 04/10/16 07:40 98.5 106 16 131/73 95 04/06/16 20:00 Room Air Intake and Output 04/09/16 04/09/16 04/10/16 15:00 23:00 07:00 Intake Total 200 ml 830 ml 600 ml Balance 200 ml 830 ml 600 ml Exam General: The patient is well-developed, Not in acute distress. HEENT: Atraumatic, normocephalic. The pupils are equal and round . Neck: Supple with full range of motion. Chest: Normal expansion of the thorax during inspiration Lungs: Clear to auscultation bilaterally Heart: Normal S1-S2, Regular rhythm and rate. Abdomen: Soft , nontender, nondistended , bowel sounds are present. Extremities: Normal to inspection, no edema no cyanosis Neurologic: Normal mental status,The patient is awake, alert and oriented . Results Result Diagram: 04/10/166 04/10/16 0426 Results 24 hrs Laboratory Tests Test 04/10/16 04:26 Alanine Aminotransferase (ALT/SGPT) 29 Albumin 2.3 L Albumin/Globulin Ratio 1.00 Alkaline Phosphatase 122 H Anion Gap 13 Aspartate Amino Transf (AST/SGOT) 33 Basophils # 0.0 Basophils % 0.5 Blood Urea Nitrogen < 2 L Calcium Level 7.8 L Carbon Dioxide Level 21 Chloride Level 104 Creatinine 0.40 L Direct Bilirubin 0.00 Eosinophils # 0.1 Eosinophils % 1.5 Globulin 2.30 Glucose Level 100 Hematocrit 25.5 L Hemoglobin 8.7 L Indirect Bilirubin 0.0 Lymphocytes # 1.0 Lymphocytes % 26.1 Mean Corpuscular Hemoglobin 34.7 H Mean Corpuscular Hemoglobin Concent 34.1 Mean Corpuscular Volume 101.6 H Mean Platelet Volume 10.7 #H Monocytes # 0.9 Monocytes % 21.8 H Neutrophils # 2.0 Neutrophils % 49.8 Nucleated Red Blood Cells # 0.0 Nucleated Red Blood Cells % 0.0 Platelet Count 153 Potassium Level 3.7 Red Blood Count 2.51 L Red Cell Distribution Width 18.6 H Sodium Level 134 L Total Bilirubin 0.0 L Total Protein 4.6 L White Blood Count 3.9 L Medications Medications Current Medications Potassium Chloride/Dextrose/ Sod Cl (D5-1/2ns + KCl 20 Meq) 1,000 ml @ 80 mls/ hr [id number] IV Last administered on 04/10/16 03:56; Admin Dose 80 MLS/HR; Start 04/01/16 at 15:06 Ondansetron HCl (Zofran Inj) 4 mg Q6H PRN IV NAUSEA AND/OR VOMITING Last administered on 04/03/16 08:37; Admin Dose 4 MG; Start 04/01/16 at 15:30 Acetaminophen (Tylenol Tab) 650 mg Q6H PRN PO PAIN LEVEL 1-3 OR FEVER Last administered on 04/09/16 05:20; Admin Dose 650 MG; Start 04/01/16 at 15:30 Acetaminophen (Tylenol Supp) 650 mg Q6H PRN [place] PAIN LEVEL 1-3 OR FEVER; Start 04/01/16 at 15:30 Morphine Sulfate (morphine) 1 mg Q4H PRN IV SEVERE PAIN LEVEL 7-10 Last administered on 04/10/16 06:23; Admin Dose 1 MG; Start 04/01/16 at 15:30 Docusate Sodium (Colace) 100 mg Q12H PRN PO CONSTIPATION; Start 04/01/16 at 15: 30 Bisacodyl (Dulcolax Supp) 10 mg DAILY PRN [place] CONSTIPATION; Start 04/01/16 at 15: 30 Zolpidem Tartrate 5 mg 5 mg QHS PRN PO SLEEP Last administered on 04/08/16 22: 25; Admin Dose 5 MG; Start 04/01/16 at 15:30 Ciprofloxacin/ Dextrose (Cipro Ivpb) 200 ml @ 200 mls/hr Q12H IVPB Last administered on 04/10/16 03:55; Admin Dose 200 MLS/HR; Start 04/01/16 at 16:00 Lorazepam (Ativan) 1 mg Q8H PRN PO ANXIETY; Start 04/01/16 at 16:17 Pantoprazole (Protonix Iv) 40 mg BID IV Last administered on 04/09/16 21:44; Admin Dose 40 MG; Start 04/02/16 at 21:00 Metoclopramide HCl 10 mg 10 mg Q6 IV Last administered on 04/10/16 06:19; Admin Dose 10 MG; Start 04/02/16 at 18:00 Metronidazole (Flagyl 500 Mg (Pmx)) 100 ml @ 100 mls/hr Q8 IVPB Last administered on 04/10/16 06:17; Admin Dose 100 MLS/HR; Start 04/04/16 at 18:00 Folic Acid (Folic Acid) 1 mg DAILY PO Last administered on 04/09/16 08:40; Admin Dose 1 MG; Start 04/05/16 at 14:00 Thiamine HCl (Vitamin B1) 100 mg DAILY PO Last administered on 04/09/16 08:40 ; Admin Dose 100 MG; Start 04/06/16 at 09:00 Multivitamins Therapeutic (Theragran) 1 tab DAILY PO Last administered on 08:40; Admin Dose 1 TAB; Start 04/06/16 at 09:00 Carbamazepine (Tegretol) 200 mg BID PO Last administered on 04/09/16 21:46; Admin Dose 200 MG; Start 04/05/16 at 21:00 Magnesium Oxide (Mag-Ox 400) 400 mg DAILY PO Last administered on 04/09/16 08: 40; Admin Dose 400 MG; Start 04/07/16 at 16:00 AMA DUNN MD Apr 10, 2016 08:59
[2016-04-10] MEDS: PANTOPRAZOLE 40 MG INJ IV SCH ×2 (09:00→21:38)
[2016-04-10] MEDS: CARBAMAZEPINE 200 MG TAB PO SCH ×2 (10:33→21:39)
[2016-04-10] MEDS: THIAMINE 100 MG TAB PO SCH (10:33)
[2016-04-10] MEDS: MAGNESIUM OXIDE 400 MG TAB PO SCH (10:34)
[2016-04-10] MEDS: FOLIC ACID 1 MG TAB PO SCH (10:35)
[2016-04-10] MEDS: MULTIVITAMINS THERAPEUTIC TAB PO SCH (10:35)
[2016-04-10 19:54] VITALS: BP 112/64; RESP 18
[2016-04-11] MEDS: D5W-0.45 NACL + KCL 20 MEQ 1,000 ML IV SCH ×2 (00:18→17:11)
[2016-04-11] MEDS: METOCLOPRAMIDE 10 MG INJ IV SCH ×5 (00:20→23:58)
[2016-04-11] MEDS: CIPROFLOXACIN 400MG/D5W 200 ML IVPB SCH ×2 (03:43→15:27)
[2016-04-11] MEDS: metroNIDAZOLE 500 MG/NS (PMX) 100 ML IVPB SCH ×3 (05:46→20:59)
[2016-04-11 08:09] VITALS: BP 123/65; RESP 16
[2016-04-11] MEDS: MAGNESIUM OXIDE 400 MG TAB PO SCH (08:14)
[2016-04-11] MEDS: FOLIC ACID 1 MG TAB PO SCH (08:14)
[2016-04-11] MEDS: PANTOPRAZOLE 40 MG INJ IV SCH ×2 (08:14→20:51)
[2016-04-11] MEDS: THIAMINE 100 MG TAB PO SCH (08:14)
[2016-04-11] MEDS: CARBAMAZEPINE 200 MG TAB PO SCH ×2 (08:14→20:51)
[2016-04-11] MEDS: MULTIVITAMINS THERAPEUTIC TAB PO SCH (08:14)
[2016-04-11] MEDS: ACETAMINOPHEN 325 MG TAB PO PRN (08:14)
[2016-04-11] MEDS: morphine 2 MG INJ IV PRN ×4 (08:15→22:18)
--- NOTE | 2016-04-11 09:30 | PN ---
Date/Time of Note Date/Time of Note DATE: 04/11/16 TIME: 09:28 Assessment/Plan VTE Prophylaxis VTE Prophylaxis Intervention: SCD's Lines/Catheters IV Catheter Type (from Nrs): Peripheral IV Urinary Cath still in place: No Assessment/Plan Chief Complaint/Hosp Course Assessment/Plan 1. Abdominal pain with associated nausea and vomiting 2/2 Alcoholic Pancreatitis: improving Logistics Engineer has been consulted, clear for discharge as per GI standpoint Appreciate GI input / Continue proton pump inhibitors / f/u biopsies / Will need outpt Colonoscopy 2. acalculous cholecystitis Negative HIDA scan 3. Seizure disorder. Continue anti-seizure medications. 4. Small Gastric ulcer * Seen on EGD 04/02/16, continue PPI 5. Moderate Macrocytic anemia 2/2 alcoholism s/p transfusion 04/02/16 Continue to monitor, will transfuse if hemoglobin is less than 7.5 6. Transaminitis likely 2/2 hepatomegaly from fatty liver and chronic alcohol abuse Continue to monitor 7. Hypernatremia. Improving status post IV fluids Alcohol abuse Education was provided, no sign of delirium tremens or withdrawal, patient placed on folic acid, multivitamin and thiamine Alcohol cessation counselling done and will continue to be reinforced throughout hospitalization. Resources to help with cessation per Social work Hypophosphatemia Likely secondary to alcohol abuse Hypomagnesemia Likely secondary to alcohol abuse, repleted Debility PT OT eval and treat Continue seizure precautions / pain control/ antiemetics/ supportive care Continue monitor patient closely for recommendation management treatment as clinical course engineering program manager consult for placement Problems: Subjective 24 Hr Interval Summary Free Text/Dictation Patient complains of having bilateral lower extremity numbness Still has has been having generalized weakness and gait instability Tolerating oral intake Denies any chest pain or shortness of breath Exam/Review of Systems Vital Signs Vitals Vital Signs Date Time Temp Pulse Resp B/P Pulse Ox O2 Delivery O2 Flow Rate FiO2 04/11/16 08:09 98.5 96 16 123/65 94 Intake and Output 04/10/16 04/10/16 04/11/16 15:00 23:00 07:00 Intake Total 200 ml 1100 ml 1370 ml Balance 200 ml 1100 ml 1370 ml Exam General: The patient is well-developed, Not in acute distress. HEENT: Atraumatic, normocephalic. The pupils are equal and round . Neck: Supple with full range of motion. Chest: Normal expansion of the thorax during inspiration Lungs: Clear to auscultation bilaterally Heart: Normal S1-S2, Regular rhythm and rate. Abdomen: Soft , nontender, nondistended , bowel sounds are present. Extremities: Normal to inspection, no edema no cyanosis, motor and sensory are intact Neurologic: Normal mental status,The patient is awake, alert and oriented . Results Result Diagram: 04/10/166 04/10/16 0426 Medications Medications Current Medications Potassium Chloride/Dextrose/ Sod Cl (D5-1/2ns + KCl 20 Meq) 1,000 ml @ 80 mls/ hr [id number] IV Last administered on 04/11/16 00:18; Admin Dose 80 MLS/HR; Start 04/01/16 at 15:06 Ondansetron HCl (Zofran Inj) 4 mg Q6H PRN IV NAUSEA AND/OR VOMITING Last administered on 04/03/16 08:37; Admin Dose 4 MG; Start 04/01/16 at 15:30 Acetaminophen (Tylenol Tab) 650 mg Q6H PRN PO PAIN LEVEL 1-3 OR FEVER Last administered on 04/11/16 08:14; Admin Dose 650 MG; Start 04/01/16 at 15:30 Acetaminophen (Tylenol Supp) 650 mg Q6H PRN [place] PAIN LEVEL 1-3 OR FEVER; Start 04/01/16 at 15:30 Morphine Sulfate (morphine) 1 mg Q4H PRN IV SEVERE PAIN LEVEL 7-10 Last administered on 04/11/16 08:15; Admin Dose 1 MG; Start 04/01/16 at 15:30 Docusate Sodium (Colace) 100 mg Q12H PRN PO CONSTIPATION; Start 04/01/16 at 15: 30 Bisacodyl (Dulcolax Supp) 10 mg DAILY PRN [place] CONSTIPATION; Start 04/01/16 at 15: 30 Zolpidem Tartrate 5 mg 5 mg QHS PRN PO SLEEP Last administered on 04/08/16 22: 25; Admin Dose 5 MG; Start 04/01/16 at 15:30 Ciprofloxacin/ Dextrose (Cipro Ivpb) 200 ml @ 200 mls/hr Q12H IVPB Last administered on 04/11/16 03:43; Admin Dose 200 MLS/HR; Start 04/01/16 at 16:00 Lorazepam (Ativan) 1 mg Q8H PRN PO ANXIETY; Start 04/01/16 at 16:17 Pantoprazole (Protonix Iv) 40 mg BID IV Last administered on 04/11/16 08:14; Admin Dose 40 MG; Start 04/02/16 at 21:00 Metoclopramide HCl 10 mg 10 mg Q6 IV Last administered on 04/11/16 05:46; Admin Dose 10 MG; Start 04/02/16 at 18:00 Metronidazole (Flagyl 500 Mg (Pmx)) 100 ml @ 100 mls/hr Q8 IVPB Last administered on 04/11/16 05:46; Admin Dose 100 MLS/HR; Start 04/04/16 at 18:00 Folic Acid (Folic Acid) 1 mg DAILY PO Last administered on 04/11/16 08:14; Admin Dose 1 MG; Start 04/05/16 at 14:00 Thiamine HCl (Vitamin B1) 100 mg DAILY PO Last administered on 04/11/16 08:14 ; Admin Dose 100 MG; Start 04/06/16 at 09:00 Multivitamins Therapeutic (Theragran) 1 tab DAILY PO Last administered on 08:14; Admin Dose 1 TAB; Start 04/06/16 at 09:00 Carbamazepine (Tegretol) 200 mg BID PO Last administered on 04/11/16 08:14; Admin Dose 200 MG; Start 04/05/16 at 21:00 Magnesium Oxide (Mag-Ox 400) 400 mg DAILY PO Last administered on 04/11/16 08: 14; Admin Dose 400 MG; Start 04/07/16 at 16:00 AMA DUNN MD Apr 11, 2016 09:30
[2016-04-11 20:14] VITALS: BP 119/74; RESP 19
[2016-04-12] MEDS: D5W-0.45 NACL + KCL 20 MEQ 1,000 ML IV SCH ×2 (01:06→05:36)
[2016-04-12] MEDS: morphine 2 MG INJ IV PRN ×5 (02:37→20:37)
[2016-04-12] MEDS: CIPROFLOXACIN 400MG/D5W 200 ML IVPB SCH ×2 (03:22→16:13)
[2016-04-12 05:14] LABS: BASOPHILS % 0.4 % (0.0-2.0); EOSINOPHILS % 0.9 % (0.0-7.0); HEMATOCRIT 26.6 % (37.0-47.0); HEMOGLOBIN 8.9 g/dl (12.0-16.0); LYMPHOCYTES # 1.1 10^3/ul (0.8-2.9); LYMPHOCYTES % 21.7 % (15.0-51.0); MEAN CORPUSCULAR HGB CONC 33.6 g/dl (32.0-37.0); MEAN CORPUSCULAR VOLUME 107.2 fl (82.0-101.0); MEAN PLATELET VOLUME 8.2 fl (7.4-10.4); MONOCYTE # 0.7 10^3/ul (0.3-0.9); MONOCYTES % 13.5 % (0.0-11.0); NEUTROPHIL # 3.2 10^3/ul (1.6-7.5); NEUTROPHILS % 63.5 % (39.0-77.0); PLATELET COUNT 271 10^3/UL (140-440); RED BLOOD COUNT 2.48 10^6/ul (4.20-5.40); RED CELL DISTRIBUTION WIDTH 22.4 % (11.5-14.5); UNCORRECTED WBC 5.1 10^3/ul (4.8-10.8); WHITE BLOOD COUNT 5.1 10^3/ul (4.8-10.8)
[2016-04-12] MEDS: METOCLOPRAMIDE 10 MG INJ IV SCH ×3 (05:34→18:06)
[2016-04-12] MEDS: metroNIDAZOLE 500 MG/NS (PMX) 100 ML IVPB SCH ×3 (05:35→22:10)
[2016-04-12 05:42] LABS: ALBUMIN 2.1 g/dl (3.3-4.9)
[2016-04-12 05:43] LABS: POTASSIUM 3.6 mmol/L (3.5-5.1)
[2016-04-12 05:45] LABS: ALBUMIN/GLOBULIN RATIO 0.91; BILIRUBIN,INDIRECT 0.1 mg/dl (0-1.1); BILIRUBIN,TOTAL 0.1 mg/dl (0.2-1.3); CREATININE 0.46 mg/dl (0.44-1.00); TOTAL PROTEIN 4.4 g/dl (6.1-8.1)
[2016-04-12 05:46] LABS: CALCIUM 7.7 mg/dl (8.4-10.2); MAGNESIUM 1.2 mg/dl (1.7-2.5)
[2016-04-12 05:52] LABS: CONDITION 1; LH ANALYZER COMMENTS 1; SUSPECT 1
[2016-04-12] MEDS ORDERED: MAGNESIUM SULFATE 3 GM in SOD CHLORIDE 0.9% 100 ML IVPB ONE (07:30)
[2016-04-12 08:05] VITALS: BP 107/67; RESP 16
[2016-04-12] MEDS: PANTOPRAZOLE 40 MG INJ IV SCH (08:33)
[2016-04-12] MEDS: MAGNESIUM OXIDE 400 MG TAB PO SCH (10:54)
[2016-04-12] MEDS: FOLIC ACID 1 MG TAB PO SCH (10:54)
[2016-04-12] MEDS: MULTIVITAMINS THERAPEUTIC TAB PO SCH (10:54)
[2016-04-12] MEDS: THIAMINE 100 MG TAB PO SCH (10:54)
[2016-04-12] MEDS: CARBAMAZEPINE 200 MG TAB PO SCH ×2 (10:54→20:37)
--- NOTE | 2016-04-12 15:43 | PN ---
Date/Time of Note Date/Time of Note DATE: 04/12/16 TIME: 15:24 Assessment/Plan VTE Prophylaxis VTE Prophylaxis Intervention: SCD's Lines/Catheters IV Catheter Type (from Nrs): Peripheral IV Urinary Cath still in place: No Assessment/Plan Chief Complaint/Hosp Course Assessment/Plan: 60 F with: 1. Abdominal pain with associated nausea and vomiting - 2/2 to alcoholic Pancreatitis: improving Date Puller has been consulted, clear for discharge as per GI standpoint Appreciate GI input / Continue proton pump inhibitors / f/u biopsies / Will need outpt Colonoscopy 2. acalculous cholecystitis Negative HIDA scan 3. Seizure disorder. Continue anti-seizure medications. 4. Small Gastric ulcer * Seen on EGD 04/02/16, continue PPI 5. Moderate Macrocytic anemia 2/2 alcoholism s/p transfusion 04/02/16 Continue to monitor, will transfuse if hemoglobin is less than 7.5 6. Transaminitis likely 2/2 hepatomegaly from fatty liver and chronic alcohol abuse Continue to monitor 7. Hyponatremia. Improving status post IV fluids - resolved now. 8. Alcohol abuse Education was provided, no sign of delirium tremens or withdrawal, patient placed on folic acid, multivitamin and thiamine Alcohol cessation counselling done and will continue to be reinforced throughout hospitalization. Resources to help with cessation per Social work 9. Hypophosphatemia Likely secondary to alcohol abuse - monitor 10. Hypomagnesemia - low today - Likely secondary to alcohol abuse - replete, monitor 11. Debility PT OT eval and treat - needs SNF placement. Continue seizure precautions / pain control/ antiemetics/ supportive care Continue monitor patient closely for recommendation management treatment as clinical course procedure manager consult for placement Problems: Subjective 24 Hr Interval Summary Free Text/Dictation No acute events overnight, awaiting placement. Exam/Review of Systems Vital Signs Vitals Vital Signs Date Time Temp Pulse Resp B/P Pulse Ox O2 Delivery O2 Flow Rate FiO2 04/12/16 08:05 98.7 101 16 107/67 97 Intake and Output 04/11/16 04/11/16 04/12/16 15:00 23:00 07:00 Intake Total 1850 ml 1720 ml Output Total 1100 ml Balance 750 ml 1720 ml Exam General: The patient is well-developed, Not in acute distress. HEENT: Atraumatic, normocephalic. The pupils are equal and round . Neck: Supple with full range of motion. Chest: Normal expansion of the thorax during inspiration Lungs: Clear to auscultation bilaterally Heart: Normal S1-S2, Regular rhythm and rate. Abdomen: Soft , nontender, nondistended , bowel sounds are present. Extremities: Normal to inspection, no edema no cyanosis, motor and sensory are intact Neurologic: Normal mental status,The patient is awake, alert and oriented. Results Result Diagram: 04/12/166 04/12/16 0426 Results 24 hrs Laboratory Tests Test 04/12/16 04:26 Alanine Aminotransferase (ALT/SGPT) 25 Albumin 2.1 L Albumin/Globulin Ratio 0.91 Alkaline Phosphatase 98 Anion Gap 12 Aspartate Amino Transf (AST/SGOT) 34 Basophils # 0.0 Basophils % 0.4 Blood Morphology Comment Blood Urea Nitrogen 5 L Calcium Level 7.7 L Carbon Dioxide Level 21 Chloride Level 106 Creatinine 0.46 Direct Bilirubin 0.00 Eosinophils # 0.0 Eosinophils % 0.9 Globulin 2.30 Glucose Level 106 Hematocrit 26.6 L Hemoglobin 8.9 L Indirect Bilirubin 0.1 Lymphocytes # 1.1 Lymphocytes % 21.7 Magnesium Level 1.2 L Mean Corpuscular Hemoglobin 36.0 H Mean Corpuscular Hemoglobin Concent 33.6 Mean Corpuscular Volume 107.2 H Mean Platelet Volume 8.2 # Monocytes # 0.7 Monocytes % 13.5 H Neutrophils # 3.2 Neutrophils % 63.5 Nucleated Red Blood Cells # 0.0 Nucleated Red Blood Cells % 0.0 Platelet Count 271 # Potassium Level 3.6 Red Blood Count 2.48 L Red Cell Distribution Width 22.4 #H Sodium Level 135 Total Bilirubin 0.1 L Total Protein 4.4 L White Blood Count 5.1 # Medications Medications Current Medications Potassium Chloride/Dextrose/ Sod Cl (D5-1/2ns + KCl 20 Meq) 1,000 ml @ 80 mls/ hr [id number] IV Last administered on 04/12/16 05:36; Admin Dose 80 MLS/HR; Start 04/01/16 at 15:06 Ondansetron HCl (Zofran Inj) 4 mg Q6H PRN IV NAUSEA AND/OR VOMITING Last administered on 04/03/16 08:37; Admin Dose 4 MG; Start 04/01/16 at 15:30 Acetaminophen (Tylenol Tab) 650 mg Q6H PRN PO PAIN LEVEL 1-3 OR FEVER Last administered on 04/11/16 08:14; Admin Dose 650 MG; Start 04/01/16 at 15:30 Acetaminophen (Tylenol Supp) 650 mg Q6H PRN [place] PAIN LEVEL 1-3 OR FEVER; Start 04/01/16 at 15:30 Morphine Sulfate (morphine) 1 mg Q4H PRN IV SEVERE PAIN LEVEL 7-10 Last administered on 04/12/16 12:00; Admin Dose 1 MG; Start 04/01/16 at 15:30 Docusate Sodium (Colace) 100 mg Q12H PRN PO CONSTIPATION; Start 04/01/16 at 15: 30 Bisacodyl (Dulcolax Supp) 10 mg DAILY PRN [place] CONSTIPATION; Start 04/01/16 at 15: 30 Zolpidem Tartrate 5 mg 5 mg QHS PRN PO SLEEP Last administered on 04/08/16 22: 25; Admin Dose 5 MG; Start 04/01/16 at 15:30 Ciprofloxacin/ Dextrose (Cipro Ivpb) 200 ml @ 200 mls/hr Q12H IVPB Last administered on 04/12/16 03:22; Admin Dose 200 MLS/HR; Start 04/01/16 at 16:00 Lorazepam (Ativan) 1 mg Q8H PRN PO ANXIETY; Start 04/01/16 at 16:17 Metoclopramide HCl 10 mg 10 mg Q6 IV Last administered on 04/12/16 12:00; Admin Dose 10 MG; Start 04/02/16 at 18:00 Metronidazole (Flagyl 500 Mg (Pmx)) 100 ml @ 100 mls/hr Q8 IVPB Last administered on 04/12/16 14:25; Admin Dose 100 MLS/HR; Start 04/04/16 at 18:00 Folic Acid (Folic Acid) 1 mg DAILY PO Last administered on 04/12/16 10:54; Admin Dose 1 MG; Start 04/05/16 at 14:00 Thiamine HCl (Vitamin B1) 100 mg DAILY PO Last administered on 04/12/16 10:54 ; Admin Dose 100 MG; Start 04/06/16 at 09:00 Multivitamins Therapeutic (Theragran) 1 tab DAILY PO Last administered on 10:54; Admin Dose 1 TAB; Start 04/06/16 at 09:00 Carbamazepine (Tegretol) 200 mg BID PO Last administered on 04/12/16 10:54; Admin Dose 200 MG; Start 04/05/16 at 21:00 Magnesium Oxide (Mag-Ox 400) 400 mg DAILY PO Last administered on 04/12/16 10: 54; Admin Dose 400 MG; Start 04/07/16 at 16:00 Pantoprazole (Protonix Tab) 40 mg BID@,18 PO ; Start 04/12/16 at 18:00 JERICHO REDDY Apr 12, 2016 15:36
[2016-04-12] MEDS: PANTOPRAZOLE (EC) 40 MG TAB PO SCH (18:06)
[2016-04-12 19:55] VITALS: BP 121/71; RESP 22
[2016-04-13] MEDS: METOCLOPRAMIDE 10 MG INJ IV SCH ×4 (00:36→18:14)
[2016-04-13] MEDS: morphine 2 MG INJ IV PRN ×6 (00:37→22:16)
[2016-04-13] MEDS: D5W-0.45 NACL + KCL 20 MEQ 1,000 ML IV SCH ×2 (02:22→18:14)
[2016-04-13] MEDS: CIPROFLOXACIN 400MG/D5W 200 ML IVPB SCH (03:30)
[2016-04-13] MEDS: metroNIDAZOLE 500 MG/NS (PMX) 100 ML IVPB SCH ×2 (05:42→14:18)
[2016-04-13] MEDS: PANTOPRAZOLE (EC) 40 MG TAB PO SCH ×2 (05:42→18:14)
[2016-04-13] MEDS ORDERED: MAGNESIUM SULFATE 3 GM in SOD CHLORIDE 0.9% 100 ML IVPB ONE (07:30)
[2016-04-13 08:17] VITALS: BP 116/66; RESP 17
[2016-04-13] MEDS: MULTIVITAMINS THERAPEUTIC TAB PO SCH (10:20)
[2016-04-13] MEDS: MAGNESIUM OXIDE 400 MG TAB PO SCH (10:20)
[2016-04-13] MEDS: THIAMINE 100 MG TAB PO SCH (10:20)
[2016-04-13] MEDS: CARBAMAZEPINE 200 MG TAB PO SCH ×2 (10:20→20:19)
[2016-04-13] MEDS: FOLIC ACID 1 MG TAB PO SCH (10:20)
--- NOTE | 2016-04-13 14:26 | PN ---
Date/Time of Note Date/Time of Note DATE: 04/13/16 TIME: 14:24 Assessment/Plan VTE Prophylaxis VTE Prophylaxis Intervention: SCD's Lines/Catheters IV Catheter Type (from [facility]): Peripheral IV Urinary Cath still in place: No Assessment/Plan Chief Complaint/Hosp Course Assessment/Plan: 60 F with: 1. Abdominal pain with associated nausea and vomiting - 2/2 to alcoholic Pancreatitis: improving Tread Tuber Machine Operator has been consulted, clear for discharge as per GI standpoint - awaiting placement Appreciate GI input / Continue proton pump inhibitors / f/u biopsies / Will need outpt colonoscopy 2. acalculous cholecystitis Negative HIDA scan 3. Seizure disorder. Continue anti-seizure medications. 4. Small Gastric ulcer * Seen on EGD 04/02/16, continue PPI 5. Moderate Macrocytic anemia 2/2 alcoholism s/p transfusion 04/02/16 Continue to monitor, will transfuse if hemoglobin is less than 7.5 6. Transaminitis likely 2/2 hepatomegaly from fatty liver and chronic alcohol abuse Continue to monitor 7. Hyponatremia. Improving status post IV fluids - resolved now. 8. Alcohol abuse Education was provided, no sign of delirium tremens or withdrawal, patient placed on folic acid, multivitamin and thiamine Alcohol cessation counselling done and will continue to be reinforced throughout hospitalization. Resources to help with cessation per Social work 9. Hypophosphatemia Likely secondary to alcohol abuse - monitor 10. Hypomagnesemia - low again today - Likely secondary to alcohol abuse - replete, monitor 11. Debility PT OT eval and treat - needs SNF placement - pending Continue seizure precautions / pain control/ antiemetics/ supportive care Continue monitor patient closely for recommendation management treatment as clinical course manager land consult for placement - working on this Problems: Subjective 24 Hr Interval Summary Free Text/Dictation No acute events overnight. Exam/Review of Systems Vital Signs Vitals Vital Signs Date Time Temp Pulse Resp B/P Pulse Ox O2 Delivery O2 Flow Rate FiO2 04/13/16 08:17 98.2 90 17 116/66 94 Intake and Output 04/12/16 04/12/16 04/13/16 15:00 23:00 07:00 Intake Total 106 ml 1340 ml 2120 ml Output Total 300 ml 500 ml Balance 106 ml 1040 ml 1620 ml Exam General: The patient is well-developed, Not in acute distress. HEENT: Atraumatic, normocephalic. The pupils are equal and round . Neck: Supple with full range of motion. Chest: Normal expansion of the thorax during inspiration Lungs: Clear to auscultation bilaterally Heart: Normal S1-S2, Regular rhythm and rate. Abdomen: Soft , nontender, nondistended , bowel sounds are present. Extremities: Normal to inspection, no edema no cyanosis, motor and sensory are intact Neurologic: Normal mental status,The patient is awake, alert and oriented. Results Result Diagram: 04/12/166 04/12/16 0426 Results 24 hrs Laboratory Tests Test 04/13/16 04:30 Magnesium Level 1.4 L Medications Medications Current Medications Potassium Chloride/Dextrose/ Sod Cl (D5-1/2ns + KCl 20 Meq) 1,000 ml @ 80 mls/ hr [id number] IV Last administered on 04/13/16 02:22; Admin Dose 80 MLS/HR; Start 04/01/16 at 15:06 Ondansetron HCl (Zofran Inj) 4 mg Q6H PRN IV NAUSEA AND/OR VOMITING Last administered on 04/03/16 08:37; Admin Dose 4 MG; Start 04/01/16 at 15:30 Acetaminophen (Tylenol Tab) 650 mg Q6H PRN PO PAIN LEVEL 1-3 OR FEVER Last administered on 04/11/16 08:14; Admin Dose 650 MG; Start 04/01/16 at 15:30 Acetaminophen (Tylenol Supp) 650 mg Q6H PRN [place] PAIN LEVEL 1-3 OR FEVER; Start 04/01/16 at 15:30 Morphine Sulfate (morphine) 1 mg Q4H PRN IV SEVERE PAIN LEVEL 7-10 Last administered on 04/13/16 14:18; Admin Dose 1 MG; Start 04/01/16 at 15:30 Docusate Sodium (Colace) 100 mg Q12H PRN PO CONSTIPATION; Start 04/01/16 at 15: 30 Bisacodyl (Dulcolax Supp) 10 mg DAILY PRN [place] CONSTIPATION; Start 04/01/16 at 15: 30 Zolpidem Tartrate 5 mg 5 mg QHS PRN PO SLEEP Last administered on 04/08/16 22: 25; Admin Dose 5 MG; Start 04/01/16 at 15:30 Ciprofloxacin/ Dextrose (Cipro Ivpb) 200 ml @ 200 mls/hr Q12H IVPB Last administered on 04/13/16 03:30; Admin Dose 200 MLS/HR; Start 04/01/16 at 16:00 Lorazepam (Ativan) 1 mg Q8H PRN PO ANXIETY; Start 04/01/16 at 16:17 Metoclopramide HCl 10 mg 10 mg Q6 IV Last administered on 04/13/16 14:18; Admin Dose 10 MG; Start 04/02/16 at 18:00 Metronidazole (Flagyl 500 Mg (Pmx)) 100 ml @ 100 mls/hr Q8 IVPB Last administered on 04/13/16 14:18; Admin Dose 100 MLS/HR; Start 04/04/16 at 18:00 Folic Acid (Folic Acid) 1 mg DAILY PO Last administered on 04/13/16 10:20; Admin Dose 1 MG; Start 04/05/16 at 14:00 Thiamine HCl (Vitamin B1) 100 mg DAILY PO Last administered on 04/13/16 10:20 ; Admin Dose 100 MG; Start 04/06/16 at 09:00 Multivitamins Therapeutic (Theragran) 1 tab DAILY PO Last administered on 10:20; Admin Dose 1 TAB; Start 04/06/16 at 09:00 Carbamazepine (Tegretol) 200 mg BID PO Last administered on 04/13/16 10:20; Admin Dose 200 MG; Start 04/05/16 at 21:00 Magnesium Oxide (Mag-Ox 400) 400 mg DAILY PO Last administered on 04/13/16 10: 20; Admin Dose 400 MG; Start 04/07/16 at 16:00 Pantoprazole (Protonix Tab) 40 mg BID@06,18 PO Last administered on 04/13/16 05:42; Admin Dose 40 MG; Start 04/12/16 at 18:00 JERICHO REDDY Apr 13, 2016 14:25
[2016-04-13 19:56] VITALS: BP 136/77; RESP 18
[2016-04-13] MEDS: ZOLPIDEM 5 MG TAB PO PRN (21:25)
[2016-04-14] MEDS: METOCLOPRAMIDE 10 MG INJ IV SCH ×4 (00:22→17:54)
[2016-04-14] MEDS: morphine 2 MG INJ IV PRN ×5 (03:45→20:11)
[2016-04-14] MEDS: PANTOPRAZOLE (EC) 40 MG TAB PO SCH ×2 (05:34→17:54)
[2016-04-14] MEDS: D5W-0.45 NACL + KCL 20 MEQ 1,000 ML IV SCH ×2 (05:38→16:34)
[2016-04-14 07:44] VITALS: BP 129/74; RESP 18
[2016-04-14] MEDS: THIAMINE 100 MG TAB PO SCH (07:57)
[2016-04-14] MEDS: CARBAMAZEPINE 200 MG TAB PO SCH ×2 (07:57→20:11)
[2016-04-14] MEDS: MAGNESIUM OXIDE 400 MG TAB PO SCH (07:58)
[2016-04-14] MEDS: FOLIC ACID 1 MG TAB PO SCH (07:58)
[2016-04-14] MEDS: MULTIVITAMINS THERAPEUTIC TAB PO SCH (07:58)
--- NOTE | 2016-04-14 15:03 | PDOCDIS ---
Discharge Instructions CONDITION Patient Condition: Stable HOME CARE INSTRUCTIONS: Diet Instructions: Low Fat /CholesterolSpecial Diet: REFUSED TEACHING ACTIVITY: Activity Restrictions: Special Exercises Activity Restrictions Comment: with itinerant teacher assistant and risk of fall JERICHO REDDY Apr 14, 2016 15:03
--- NOTE | 2016-04-14 15:08 | DS ---
Date/Time of Note Date/Time of Note DATE: 04/14/16 TIME: 15:04 Discharge Summary Admission/Discharge Info Admit Date/Time Apr 01, 2016 at 14:01 Discharge Date/Time Final Diagnosis 1. Abdominal pain with associated nausea, vomiting secondary to alcoholic pancreatitis, improved. Gastroenterology was consulted. Patient has been placed on proton pump inhibitor. 2. Acalculous cholecystitis, negative HIDA scan. 3. Seizure disorder. Continue anti-seizure medication. 4. Small gastric ulcer. Continue proton pump inhibitor. 5. We will monitor macrocytic anemia secondary to alcoholism. 6. Status post transfusion of packed red blood cell, 04/02/2016. The patient will continue folic acid, multivitamin and thiamine. 7. Hypernatremia, resolved. 8. Alcohol abuse. Education was provided. No sign of delirium tremens or withdrawal. Alcohol cessation consult, counseling done. We will continue to reinforce throughout hospitalization. Continue folic acid, thiamine and multivitamin. 9. Hypomagnesemia, repleted. 10. Debility. Physical therapy and occupational therapy evaluate and treat. Hospital Course HOSPITAL COURSE: This is a very pleasant 60-year-old female with past medical history of seizure disorder who has been complaining of having abdominal discomfort, nausea, vomiting, having difficulty with decreased p.o. intake with nausea and abdominal pain. She has been complaining of having chronic back pain and has history of hysterectomy. She reported nausea, vomiting x2 weeks of emesis, nonbloody, complaining of generalized abdominal weakness. No diarrhea, no bowel movement without any fever or chills. Positive for anorexia secondary nausea, vomiting, blood glucose was found to be 104. Sodium 131, potassium 2.8, bicarbonate 16, glucose 104, calcium 8.4. Lipase was 164, magnesium 1.3. Patient was treated with 10 mg of potassium chloride and [address] abdomen and pelvis was obtained which was unremarkable. The patient was started on IV fluids and ciprofloxacin. Patient was found to have history of alcoholism at the time of admission. The patient stated that she has discontinued drinking. Although after her admission, the patient stated that she has continued to consume alcohol. She was placed on folic acid , multivitamin and thiamine, IV fluids. Client Support Associate was consulted. The patient was taken to GI lab for upper endoscopy, which showed a small 5 mm clean based antral gastric ulceration. The patient was continued on IV PPI and patient's LFTs started to improve significantly. Her magnesium has been repleted with IV magnesium sulfate. Her LFTs have been improving. The patient has been having difficulty with ambulation and secondary to her condition and her continuous nausea and vomiting, which has been going on for the past several weeks. The patient has been seen and evaluated by physical therapy and has been having difficulty with ambulation. Therefore, at this time, the patient is being set up by disease case manager rn to be transferred to halfway facility for physical therapy. The patient will be discharge from halfway facility. There have been several talks with the patient regarding her drinking habits. At this time, patient is medically stable to be transferred to halfway facility with close followup with her primary care physician and superintendent gas distribution in 3 to 4 months. Patient was initially planned to be discharge to halfway facility on 04/07/2016 although unfortunately no bed was available until today. No acute events since then, as the patient has been able to tolerate oral intake without any difficulties she is still max assist with ambulation and she is said to be discharged to halfway facility today with a close follow up with her primary care physician as outpatient. D/C Med List: 1. Tylenol. 2. Dulcolax suppository. 3. Tegretol 200 mg b.i.d. 4. Colace 100 mg. 5. Folic acid 1 mg. 6. Ativan 1 mg p.r.n. 5. Multivitamin. 6. Thiamine 100 mg. 7. Magnesium oxide 400 mg 9. Reglan 5 mg p.o. t.i.d. 11. Zofran 4 mg. 12. Protonix 40 mg 1 tab p.o. b.i.d. x30 days and then 1 tab p.o. daily. Home Meds Active Scripts Multivitamins* (Theragran*) 1 Tab Tab, 1 TAB PO DAILY for 1 Day, TAB Prov:AMA DUNN MD 04/07/16 [Thiamine] 100 MG TAB No Conflict Check, 100 MG PO DAILY for 1 Day Prov:AMA DUNN MD 04/07/16 Folic Acid* (Folic Acid*) 1 Mg Tablet, 1 MG PO DAILY for 1 Day, TAB Prov:AMA DUNN MD 04/07/16 Docusate Sodium (Dok) 100 Mg Capsule, 100 MG PO Q12H Y for CONSTIPATION for 1 Day, CAP Prov:AMA DUNN MD 04/07/16 Acetaminophen* (Tylenol*) 325 Mg Tablet, 650 MG PO Q6H Y for PAIN LEVEL 1-3 OR FEVER for 1 Day, TAB Prov:AMA DUNN MD 04/07/16 Reported Medications Carbamazepine* (Carbamazepine*) 100 Mg Tab.chew, 200 MG PO BID, TAB.CHEW 08/07/14 Discontinued Scripts Hydrocodone Bit-Acetaminophen* ([place]*) 5-325 Mg Tab, 1 TAB PO Q6 Y for PAIN, # 10 TAB Prov:DELORES CARROLL 10/01/14 Ibuprofen* (Motrin*) 600 Mg Tab, 600 MG PO Q6H Y for PAIN AND OR ELEVATED TEMP, #30 Prov:DELORES CARROLL 10/01/14 JERICHO REDDY Apr 14, 2016 15:08
[2016-04-14 20:00] VITALS: BP 130/72; PULSE 98; RESP 19
== END 2016-04-14 20:32 | DRG 439 ==
LOC: PP2 14:01
PROVIDERS: ADMIT Family Medicine; ATTEND Family Medicine
PROC: 30243N1 Transfusion of Nonautologous Red Blood Cells into Central Vein, Percutaneous Approach (ICD-10-PCS; 2016-04-02)
PROC: 0DB68ZX Excision of Stomach, Via Natural or Artificial Opening Endoscopic, Diagnostic (ICD-10-PCS; principal; 2016-04-02 17:00)
DX: K85.20 Alcohol induced acute pancreatitis without necrosis or infection (principal); E87.1 Hypo-osmolality and hyponatremia; K76.0 Fatty (change of) liver, not elsewhere classified; K25.9 Gastric ulcer, unspecified as acute or chronic, without hemorrhage or perforation; G40.909 Epilepsy, unspecified, not intractable, without status epilepticus; F17.210 Nicotine dependence, cigarettes, uncomplicated; E87.6 Hypokalemia; D53.9 Nutritional anemia, unspecified; E83.39 Other disorders of phosphorus metabolism; E83.51 Hypocalcemia; E83.42 Hypomagnesemia; K81.9 Cholecystitis, unspecified; R53.81 Other malaise; F10.20 Alcohol dependence, uncomplicated
CPT/HCPCS: 36430; 76700; 78226; 80048; 80053; 80061; 82150; 82607; 82728; 82746; 83540; 83690; 83735; 84100; 84132; 84443; 85025; 85610; 86704; 86709; 86803; 86850; 86900; 86901; 86920; 87340; 88305; 97110; 97116; 97162; 97530; A9537; C9113; J0744; J2270; J2405; J2765; J3475; J3480; J7040; J7050; P9016

== ENCOUNTER 2018-10-24 09:16 | Day surgery (SDC) | payer OTHER ==
[~2018-10-24] VITALS: Ht 170.2 cm; Wt 64.0 kg
[~2018-10-24 09:16] MED LIST changes: +ACET325T33 PO; +DOCU-216 PO; +FOLI-49 PO; -HYDR-3498 PO; -IBUP-1542 PO; +MULTI PO; +Thiamine PO
[2018-10-24] MEDS ORDERED: LACTATED RINGER'S 1,000 ML IV ONE (09:30)
[2018-10-24] MEDS ORDERED: POLYMYXIN/BACITRACIN 1L IRRIG ONE (10:24)
[2018-10-24] MEDS ORDERED: GENTAMICIN 80 MG INJ ONE (10:24)
[2018-10-24] MEDS ORDERED: LIDOCAINE 1%/EPI 30 ML INJ ONE ×2 (10:24→11:44)
[2018-10-24] MEDS ORDERED: BUPIVACAINE 0.25% (MPF) 30 ML INJ ONE (10:24)
[2018-10-24 10:46] VITALS: BP 109/74; PULSE 80; RESP 16
[2018-10-24 10:47] VITALS: Ht 170.2 cm; Wt 64.0 kg
[2018-10-24] MEDS ORDERED: PROPOFOL 20 ML ONE (11:11)
[2018-10-24] MEDS ORDERED: MIDAZOLAM 1 MG/ML 2 ML INJ ONE ×2 (11:21→13:00)
[2018-10-24] MEDS ORDERED: METOCLOPRAMIDE 10 MG INJ IV PRN (11:30)
[2018-10-24] MEDS ORDERED: ALBUTEROL 0.083% (NEB) 2.5 MG/3 ML AMP HHN PRN (11:30)
[2018-10-24] MEDS ORDERED: FENTAnyl 50 MCG/ML VIAL IV PRN ×2 (11:30)
[2018-10-24] MEDS ORDERED: MEPERIDINE 25 MG INJ IV PRN (11:30)
[2018-10-24] MEDS ORDERED: HYDROmorphONE 1 MG/5 ML IV SYRINGE IV PRN ×2 (11:30)
[2018-10-24] MEDS ORDERED: ONDANSETRON 4 MG INJ IV PRN (11:30)
[2018-10-24] MEDS ORDERED: DIPHENHYDRAMINE 50 MG INJ IV PRN (11:30)
[2018-10-24] MEDS ORDERED: BALANCED SALT SOLN 15 ML OPH IRRIG LEFT EYE ONE (11:57)
[2018-10-24] MEDS ORDERED: CEFAZOLIN 1 GM INJ ONE (13:57)
[2018-10-24 14:00] VITALS: BP 131/80; PULSE 84; RESP 20
[2018-10-24 14:14] VITALS: BP 129/79; PULSE 80; RESP 16
[2018-10-24 14:24] VITALS: BP 128/82; PULSE 86; RESP 18
[2018-10-24] MEDS ORDERED: OXYCODONE/ACETAMINOPHEN (5/325) TAB PO PRN (14:30)
[2018-10-24 14:35] VITALS: BP 122/80; PULSE 80; RESP 18
== END 2018-10-24 16:23 | disposition home or self-care (01) ==
LOC: SDS 09:16
PROVIDERS: ATTEND Plastic Surgery
DX: C44.311 Basal cell carcinoma of skin of nose (principal)
CPT/HCPCS: 88305; 88331; 88332; J0690; J1580; J2250